=== PATIENT | female | born 1960 | race Caucasian/White ===

== ENCOUNTER 2021-05-19 09:35 | Emergency (ER) | payer OTHER ==
--- NOTE | 2021-05-19 10:20 | EDPHYS ---
Physician Documentation [facility] Name: Chayo Sexton Age: 61 yrs Sex: Female : 1960 Arrival Date: 05/19/2021 Time: 09:40 Bed 11 Private MD: ED Physician Rick Connolly HPI: 05/19 10:13 This 61 yrs old Female presents to ER via Ambulatory with complaints of Rash. nataliia 10:13 The patient's rash thought to be caused by Dermatitis. The rash is located on the face, nataliia scalp, right hand and left hand. The rash can be described as confluent, erythematous, patchy, raised. Onset: The symptoms/episode began/occurred 7 day(s) ago. Associated signs and symptoms: Pertinent positives: burning sensation, itching, Pertinent negatives: None. Severity of symptoms: At their worst the symptoms were mild moderate in the emergency department the symptoms are unchanged. Treatment given at home: Benadryl. The patient has not experienced similar symptoms in the past. Historical: - Allergies: 09:50 No Known Allergies; iw - PMHx: 09:50 "valve spasms"; Myocardial infarction; iw - Immunization history:: Client reports receiving the 2nd dose of the Covid vaccine. - Social history:: Smoking status: Patient reports the use of cigarette tobacco products, smokes one pack cigarettes per day. - Family history:: not pertinent. ROS: 10:13 Constitutional: Negative for fever, chills, and weight loss, Eyes: Negative for injury, nataliia pain, redness, and discharge, ENT: Negative for injury, pain, and discharge, Neck: Negative for injury, pain, and swelling, Cardiovascular: Negative for chest pain, palpitations, and edema, Respiratory: Negative for shortness of breath, cough, wheezing, and pleuritic chest pain, Abdomen/GI: Negative for abdominal pain, nausea, vomiting, diarrhea, and constipation, Back: Negative for injury and pain, : Negative for injury, bleeding, discharge, and swelling, MS/Extremity: Negative for injury and deformity, Neuro: Negative for headache, weakness, numbness, tingling, and seizure, Psych: Negative for depression, anxiety, suicide ideation, homicidal ideation, and hallucinations, Allergy/Immunology: Negative for hives, rash, and allergies, Endocrine: Negative for neck swelling, polydipsia, polyuria, polyphagia, and marked weight changes, Hematologic/Lymphatic: Negative for swollen nodes, abnormal bleeding, and unusual bruising. 10:13 Skin: Positive for erythema, rash, swelling. Exam: 10:13 Constitutional: This is a well developed, well nourished patient who is awake, alert, nataliia and in no acute distress. Head/Face: Normocephalic, atraumatic. Eyes: Pupils equal round and reactive to light, extra-ocular motions intact. Lids and lashes normal. Conjunctiva and sclera are non-icteric and not injected. Cornea within normal limits. Periorbital areas with no swelling, redness, or edema. ENT: Nares patent. No nasal discharge, no septal abnormalities noted. Tympanic membranes are normal and external auditory canals are clear. Oropharynx with no redness, swelling, or masses, exudates, or evidence of obstruction, uvula midline. Mucous membranes moist. Neck: Trachea midline, no thyromegaly or masses palpated, and no cervical lymphadenopathy. Supple, full range of motion without nuchal rigidity, or vertebral point tenderness. No Meningismus. Chest/axilla: Normal chest wall appearance and motion. Nontender with no deformity. No lesions are appreciated. Cardiovascular: Regular rate and rhythm with a normal S1 and S2. No gallops, murmurs, or rubs. Normal PMI, no JVD. No pulse deficits. Respiratory: Lungs have equal breath sounds bilaterally, clear to auscultation and percussion. No rales, rhonchi or wheezes noted. No increased work of breathing, no retractions or nasal flaring. Abdomen/GI: Soft, non-tender, with normal bowel sounds. No distension or tympany. No guarding or rebound. No evidence of tenderness throughout. Back: No spinal tenderness. No costovertebral tenderness. Full range of motion. Female : Normal external genitalia. Neuro: Awake and alert, GCS 15, oriented to person, place, time, and situation. Cranial nerves II-XII grossly intact. Motor strength 5/5 in all extremities. Sensory grossly intact. Cerebellar exam normal. Normal gait. Psych: Awake, alert, with orientation to person, place and time. Behavior, mood, and affect are within normal limits. 10:13 Skin: Appearance: Color: normal in color, Temperature: normal temperature, Moisture: normal moisture, petechiae, not noted, ecchymosis, not noted, abscess, not appreciated, cellulitis, is not appreciated, induration, is not appreciated, rash a mild rash is noted, rash can be described as erythematous, macular, nonspecific, raised, on the face, scalp, right hand and left hand. Vital Signs: 09:48 BP 137 / 97; Pulse 70; Resp 16; Temp 98.3; Pulse Ox 100% on R/A; Weight 59.42 kg; iw Height 5 ft. 0 in. (152.40 cm); 10:13 BP 138 / 81; Pulse 66; Resp 16; Pulse Ox 96% on R/A; vg1 09:48 Body Mass Index 25.58 (59.42 kg, 152.40 cm) iw MDM: 09:57 Patient medically screened. [facility] 10:18 Differential diagnosis: impetigo, allergic reaction. Data reviewed: vital signs, nurses nataliia notes. Data interpreted: vehicle monitor technician: rate is 66 beats/min, rhythm is regular, Pulse oximetry: on room air is 96 %. Counseling: I had a detailed discussion with the patient and/or guardian regarding: the historical points, exam findings, and any diagnostic results supporting the discharge/admit diagnosis, the need for outpatient follow up, for definitive care, a energy operations vice president, a family practitioner. Administered Medications: 10:30 Drug: predniSONE 60 mg Route: PO; vg1 10:30 Follow up: Response: Medication administered at discharge. vg1 10:30 Drug: Benadryl (diphenhydrAMINE) 25 mg Route: PO; vg1 10:30 Follow up: Response: Medication administered at discharge. vg1 10:30 Drug: Pepcid (famotidine) 40 mg Route: PO; vg1 10:30 Follow up: Response: Medication administered at discharge. vg1 10:30 Drug: Bactroban (mupirocin) Ointment 2 % 1 application Route: Topical; Site: affected vg1 area; 10:30 Follow up: Response: Medication administered at discharge. vg1 10:30 Drug: Bactrim (trimethoprim-sulfamethoxazole) (160 mg-800 mg (DS) 1 tablet Route: PO; vg1 10:30 Follow up: Response: Medication administered at discharge. vg1 Disposition Summary: 05/19/21 10:19 Discharge Ordered Location: Home nataliia Problem: new nataliia Symptoms: have improved nataliia Condition: Stable nataliia Diagnosis - Dermatitis, unspecified nataliia - Allergic contact dermatitis due to dyes nataliia - Allergic contact dermatitis due to cosmetics nataliia Followup: nataliia - With: Private Physician - When: 2 - 3 days - Reason: Recheck today's complaints, Continuance of care, Re-evaluation by your physician Followup: nataliia - With: Luther Smith MD - When: 2 - 3 days - Reason: Recheck today's complaints, Re-evaluation by your physician Discharge Instructions: - Discharge Summary Sheet nataliia - Contact Dermatitis nataliia - Rash, Adult nataliia - Rash, Adult, [id number] nataliia - Contact Dermatitis, [id number] [facility] Forms: - Medication Reconciliation Form [facility] - Thank You Letter [facility] - Antibiotic Education [facility] - Prescription Opioid Use [facility] Prescriptions: - Centany 2 % Topical ointment - apply 1 application by TOPICAL route 3 times per day; 22 gram; Refills: 0, [facility] Product Selection Permitted - Benadryl 25 mg Oral Capsule - take 1 capsule by ORAL route every 6 hours As needed; 30 tablet; Refills: 0, [facility] Product Selection Permitted - Pepcid 20 mg Oral Tablet - take 1 tablet by ORAL route every 12 hours for 10 days; 20 tablet; Refills: 0, [facility] Product Selection Permitted - Bactrim DS 800-160 mg Oral Tablet - take 1 tablet by ORAL route every 12 hours for 10 days; 20 tablet; Refills: 0, [facility] Product Selection Permitted - Prednisone 20 mg Oral Tablet - take 2 tablets by ORAL route once daily for 5 days; 10 tablet; Refills: 0, [facility] Product Selection Permitted Signatures: Rick Connolly MD MD cha Williams, Irene, RN Poonam Palencia RN RN vg1
--- NOTE | 2021-05-19 10:20 | ER ---
Nurse's Notes [facility] Name: Chayo Sexton Age: 61 yrs Sex: Female : 1960 Arrival Date: 05/19/2021 Time: 09:40 Bed 11 Private MD: Diagnosis: Dermatitis, unspecified;Allergic contact dermatitis due to dyes;Allergic contact dermatitis due to cosmetics Presentation: 05/19 09:48 Chief complaint: Patient states: rash around neck started 3 weeks ago, started on her iw ears that were oozing , went to PCP, started on steroid cream and given soap to wash with , thinks it was from poison sebastian from her cat , now rash is on her scalp. Coronavirus screen: At this time, the client does not indicate any symptoms associated with coronavirus-19. Ebola Screen: Patient negative for fever greater than or equal to 101.5 degrees Fahrenheit, and additional compatible Ebola Virus Disease symptoms Patient denies exposure to infectious person. Patient denies travel to an Ebola-affected area in the 21 days before illness onset. No symptoms or risks identified at this time. Initial Sepsis Screen: Does the patient meet any 2 criteria? No. Patient's initial sepsis screen is negative. Does the patient have a suspected source of infection? No. Patient's initial sepsis screen is negative. Risk Assessment: Do you want to hurt yourself or someone else? Patient reports no desire to harm self or others. Onset of symptoms was May 05, 2021. 09:48 Method Of Arrival: Ambulatory iw 09:48 Acuity: INDIGO 3 iw Historical: - Allergies: 09:50 No Known Allergies; iw - PMHx: 09:50 "valve spasms"; Myocardial infarction; iw - Immunization history:: Client reports receiving the 2nd dose of the Covid vaccine. - Social history:: Smoking status: Patient reports the use of cigarette tobacco products, smokes one pack cigarettes per day. - Family history:: not pertinent. Screenin:14 Abuse screen: Denies threats or abuse. Nutritional screening: No deficits noted. vg1 Tuberculosis screening: No symptoms or risk factors identified. Fall Risk No fall in past 12 months (0 pts). No secondary diagnosis (0 pts). No IV (0 pts). Ambulatory Aid- None/Bed Rest/Nurse Assist (0 pts). Gait- Normal/Bed Rest/Wheelchair (0 pts) Mental Status- Oriented to own ability (0 pts). Total Merritt Fall Scale indicates No Risk (0-24 pts). Assessment: 10:10 General: Appears in no apparent distress. uncomfortable, Behavior is calm, cooperative. vg1 Pain: Complains of pain in neck, scalp, ears, and JAZIEL hands Pain currently is 8 out of 10 on a pain scale. Pain began about 3 weeks ago. Neuro: Level of Consciousness is awake, alert, obeys commands, Oriented to person, place, time, situation. Cardiovascular: Patient's skin is warm and dry. Respiratory: Airway is patent Respiratory effort is even, unlabored, Breath sounds are clear bilaterally. GI: No signs and/or symptoms were reported involving the gastrointestinal system. : No signs and/or symptoms were reported regarding the genitourinary system. EENT: Throat is clear. Derm: Skin appears to have scabs around neck line, scalp, JAZIEL ears, and JAZIEL hands Skin is red. Musculoskeletal: Circulation, motion, and sensation intact. Vital Signs: 09:48 BP 137 / 97; Pulse 70; Resp 16; Temp 98.3; Pulse Ox 100% on R/A; Weight 59.42 kg; iw Height 5 ft. 0 in. (152.40 cm); 10:13 BP 138 / 81; Pulse 66; Resp 16; Pulse Ox 96% on R/A; vg1 09:48 Body Mass Index 25.58 (59.42 kg, 152.40 cm) iw ED Course: 09:40 Patient arrived in ED. mr 09:50 Triage completed. iw 09:52 Arm band placed on. iw 09:56 Poonam Perez, MARIS is Primary Nurse. vg1 09:57 Rick Connolly MD is Attending Physician. natailia 10:14 Patient has correct armband on for positive identification. Call light in reach. vg1 10:14 No provider procedures requiring assistance completed. Patient did not have IV access vg1 during this emergency room visit. 10:20 Luther Smith MD is Referral Physician. nataliia Administered Medications: 10:30 Drug: predniSONE 60 mg Route: PO; vg1 10:30 Follow up: Response: Medication administered at discharge. vg1 10:30 Drug: Benadryl (diphenhydrAMINE) 25 mg Route: PO; vg1 10:30 Follow up: Response: Medication administered at discharge. vg1 10:30 Drug: Pepcid (famotidine) 40 mg Route: PO; vg1 10:30 Follow up: Response: Medication administered at discharge. vg1 10:30 Drug: Bactroban (mupirocin) Ointment 2 % 1 application Route: Topical; Site: affected vg1 area; 10:30 Follow up: Response: Medication administered at discharge. vg1 10:30 Drug: Bactrim (trimethoprim-sulfamethoxazole) (160 mg-800 mg (DS) 1 tablet Route: PO; vg1 10:30 Follow up: Response: Medication administered at discharge. vg1 Outcome: 10:19 Discharge ordered by . nataliia 10:31 Discharged to home ambulatory. vg1 10:31 Condition: stable 10:31 Discharge instructions given to patient, Instructed on discharge instructions, follow up and referral plans. medication usage, Demonstrated understanding of instructions, follow-up care, medications, Prescriptions given X 5 10:31 Patient left the ED. vg1 Signatures: Rick Connolly MD MD cha Rivera, Mary mr Williams, Irene, Poonam Palencia RN, RN RN vg1
[2021-05-19 10:37] VITALS: TEMP 98.3
[2021-05-19 10:38] VITALS: BP 138/81; O2SAT 96
[2021-05-19] MEDS ORDERED: DIPHENHYDRAMINE 25 MG TAB/CAP ONE (10:41)
[2021-05-19] MEDS ORDERED: SMZ./TMP. 800/160 MG TABLET ONE (10:41)
[2021-05-19] MEDS ORDERED: predniSONE 20 MG TAB ONE (10:42)
[2021-05-19] MEDS ORDERED: MUPIROCIN 2% OINT 22GM TUBE TOP ONE (10:42)
[2021-05-19] MEDS ORDERED: FAMOTIDINE 20 MG TAB ONE (10:42)
== END 2021-05-19 10:31 | disposition home or self-care (01) ==
LOC: ER 09:35
DX: L23.4 Allergic contact dermatitis due to dyes (principal); L23.2 Allergic contact dermatitis due to cosmetics; F17.210 Nicotine dependence, cigarettes, uncomplicated
CPT/HCPCS: 99283; J7512

== ENCOUNTER 2022-01-12 10:32 | Emergency (ER) | payer OTHER ==
--- OUTSIDE RECORDS SUMMARY | 2022-01-12 10:35 | XMS REPORT | Continuity of Care Document ---
:1960 Author Organization [facility] t Address [address] [place] [address] Dr. Carrasco [address] [place] [id number] Care Team Providers Name Role Phone Raju_P Attending Clinician Unavailable Raju_P Admitting Clinician Unavailable Problems This patient has no known problems. Allergies, Adverse Reactions, Alerts This patient has no known allergies or adverse reactions. Medications This patient has no known medications. Procedures This patient has no known procedures. Encounters Start End Encounter Admission Attending Care Care Encounter Source Date/Time Date/Time Type Type Clinicians Facility Department ID 2019-12-13 2019-12-13 Outpatient Leon[facility]P [facility] [id number] [place] 11:32:00 11:32:00 [id number] Results This patient has no known results.
[2022-01-12] MEDS ORDERED: ALBUTEROL 2.5 MG/3 ML NEB SOL ONE (11:08)
[2022-01-12] MEDS ORDERED: HYDROCODONE/CHLORPHEN 5 ML/OSYR ONE (11:08)
[2022-01-12] MEDS ORDERED: METHYLPREDNISOLONE 125 MG INJ ONE (11:08)
--- NOTE | 2022-01-12 11:39 | RAD REPORT ---
EXAM DESCRIPTION: RAD - Chest Pa And Lat (2 Views) - 01/12/2022 11:32 am CLINICAL HISTORY: Cough Chest pain. COMPARISON: <Comparisons> FINDINGS: There is a moderate-sized opacity in the right middle lobe most likely representing bronch opneumonia. Underlying lung soto appear mildly emphysematous. The heart is upper limit normal in si ze. No displaced fractures. IMPRESSION: Moderate right middle lobe pneumonia suspected. Recommend followup films after appropriate therapy to ensure clearance.
[2022-01-12 11:52] LABS: SARS-COV-2 RT PCR NEGATIVE (NEGATIVE)
[2022-01-12] MEDS ORDERED: CEFTRIAXONE 1000 MG/VIAL ONE (12:08)
--- NOTE | 2022-01-12 12:14 | EDPHYS ---
Physician Documentation [facility] Name: Chayo Sexton Age: 61 yrs Sex: Female : 1960 Arrival Date: 01/12/2022 Time: 10:36 Bed 7 Private MD: ED Physician Sivakumar Mercer HPI: 01/12 11:13 This 61 yrs old Female presents to ER via Ambulatory with complaints of Headache, pm1 Fever, Congestion. 11:13 The patient or guardian reports cough, loss of taste and smell - just like her prior pm1 covid infection 3 months ago. Onset: The symptoms/episode began/occurred 3 day(s) ago. Severity of symptoms: in the emergency department the symptoms are unchanged. Modifying factors: The symptoms are alleviated by Tylenol, ibuprofen. Associated signs and symptoms: Pertinent positives: fever, sore throat, productive cough, yellow sputum, Pertinent negatives: chest pain, diarrhea, ear ache, vomiting, SOB. The patient has experienced a previous episode, approximately 3 months ago, to covid infection 3 months ago. The patient has not recently seen a physician. Historical: - Allergies: 10:48 No Known Allergies; vg1 - Home Meds: 10:48 Neurontin Oral [Active]; Celexa Oral [Active]; aspirin 500 mg Oral TbEC [Active]; vg1 11:12 another unk med [Active]; jg9 - PMHx: 10:48 "valve spasms"; Myocardial infarction; vg1 - Immunization history:: Client reports receiving the 2nd dose of the Covid vaccine. - Social history:: Smoking status: Patient reports the use of cigarette tobacco products, smokes one-half pack cigarettes per day. ROS: 11:13 Eyes: Negative for injury, pain, redness, and discharge, Cardiovascular: Negative for pm1 chest pain, palpitations, and edema. 11:13 Abdomen/GI: Negative for abdominal pain, nausea, vomiting, diarrhea, and constipation, Back: Negative for injury and pain, MS/Extremity: Negative for injury and deformity, Skin: Negative for injury, rash, and discoloration. 11:13 Constitutional: Positive for fever, Negative for poor PO intake. 11:13 ENT: Positive for rhinorrhea, sore throat, Negative for ear pain. 11:13 Respiratory: Positive for cough, Negative for shortness of breath. 11:13 Neuro: Positive for headache. 11:13 All other systems are negative. Exam: 11:13 Constitutional: This is a well developed, well nourished patient who is awake, alert, pm1 and in no acute distress. Head/Face: Normocephalic, atraumatic. 11:13 Back: No spinal tenderness. No costovertebral tenderness. Full range of motion. Skin: Warm, dry with normal turgor. Normal color with no rashes, no lesions, and no evidence of cellulitis. MS/ Extremity: Pulses equal, no cyanosis. Neurovascular intact. Full, normal range of motion. 11:13 Eyes: Exam is negative for acute changes, Periorbital structures: appear normal, Pupils: no acute changes, Extraocular movements: no acute changes, Conjunctiva: no acute changes, no injection. 11:13 ENT: Nose: no acute changes, Mouth: Lips: normal, moist, Posterior pharynx: no acute changes, Airway: no evidence of obstruction, Tonsils: are normal in appearance, erythema, that is mild, peritonsillar mass, is not appreciated. 11:13 Cardiovascular: Exam negative for acute changes, Rate: normal, Rhythm: regular, Pulses: no pulse deficits are appreciated, Heart sounds: normal, Edema: is not appreciated. 11:13 Respiratory: Exam negative for acute changes, respiratory distress, shortness of breath, Breath sounds: are clear throughout. 11:13 Neuro: Exam negative for acute changes, Orientation: is normal, Mentation: is normal, Motor: moves all fours. Vital Signs: 10:46 BP 143 / 80; Pulse 68; Resp 18; Temp 99.1(TE); Pulse Ox 97% on R/A; Weight 54.43 kg; vg1 Height 5 ft. 0 in. (152.40 cm); Pain 0/10; 11:14 BP 109 / 77; Pulse 57; Resp 20 S; Pulse Ox 98% on Nebulizer Mask; Pain 8/10; jg9 12:15 BP 126 / 82; Pulse 69; Resp 17 S; Pulse Ox 97% on R/A; jg9 10:46 Body Mass Index 23.44 (54.43 kg, 152.40 cm) vg1 MDM: 10:54 Patient medically screened. pm1 11:20 Data reviewed: vital signs. Data interpreted: Pulse oximetry: on room air is 98 %. pm1 Interpretation: normal. 11:56 Counseling: I had a detailed discussion with the patient and/or guardian regarding: lab pm1 results, radiology results. 12:08 Counseling: I had a detailed discussion with the patient and/or guardian regarding: the pm1 historical points, exam findings, and any diagnostic results supporting the discharge/admit diagnosis, the need for outpatient follow up, to return to the emergency department if symptoms worsen or persist or if there are any questions or concerns that arise at home. 12:11 Special discussion: I discussed with the patient/guardian in detail that at this point pm1 there is no indication for admission to the hospital. It is understood, however, that if the symptoms persist or worsen the patient needs to return immediately for re-evaluation. Patient's VSS and no oxygen requirement. Will trial the patient at home with antibiotics and return to the ER for reevaluation if she worsens. 01/12 10:52 Order name: COVID-19/FLU A+B (Document "Date of Onset" if Symptomatic); Complete Time: ww 11:52 01/12 10:55 Order name: Strep; Complete Time: 11:30 pm1 01/12 11:01 Order name: Chest Pa And Lat (2 Views) XRAY; Complete Time: 11:43 pm1 01/12 11:30 Order name: Throat Culture EDMS Administered Medications: 11:06 Drug: Tussionex Pennkinetic ER (chlorpheniramine-hydrocodone) Suspension 5 ml Route: PO;jg9 12:14 Follow up: Response: No adverse reaction; Marked relief of symptoms jg9 11:09 Drug: Albuterol 2.5 mg Route: Inhalation; jg9 12:14 Follow up: Response: No adverse reaction; Marked relief of symptoms jg9 11:10 Drug: SOLU-Medrol (methylPREDNISolone sodium succinate) 125 mg Route: IM; Site: left jg9 deltoid; 12:14 Follow up: Response: No adverse reaction; Marked relief of symptoms jg9 12:14 Drug: Rocephin (cefTRIAXone) 1 grams Route: IM; Site: right gluteus; jg9 12:14 Follow up: Response: No adverse reaction; Medication administered at discharge. jg9 Disposition Summary: 01/12/22 12:13 Discharge Ordered Location: Home pm1 Problem: new pm1 Symptoms: have improved pm1 Condition: Stable pm1 Diagnosis - Pneumonia, unspecified organism pm1 Followup: pm1 - With: Emergency Department - When: As needed - Reason: Worsening of condition Followup: pm1 - With: Private Physician - When: 2 - 3 days - Reason: Recheck today's complaints, Continuance of care, Re-evaluation by your physician Discharge Instructions: - Discharge Summary Sheet pm1 - Community-Acquired Pneumonia, Adult pm1 - Steps to Quit Smoking pm1 Forms: - Medication Reconciliation Form pm1 - Thank You Letter pm1 - Antibiotic Education pm1 - Prescription Opioid Use pm1 Prescriptions: - Zithromax Z-Venkat 250 mg Oral Tablet - take 1 tablet by ORAL route as directed for 5 days Day 1 - take two (2) tablets pm1 one time. Day 2, 3, 4 , 5 take one (1) tablet once daily.; 6 tablet; Refills: 0, Product Selection Permitted - Augmentin 875-125 mg Oral Tablet - take 1 tablet by ORAL route every 12 hours for 10 days; 20 tablet; Refills: 0, pm1 Product Selection Permitted - Ventolin HFA 90 mcg/actuation Inhalation HFA aerosol inhaler - inhale 2 puff by INHALATION route every 4-6 hours As needed; 1 Inhaler; pm1 Refills: 0, Product Selection Permitted - Medrol (Venkat) 4 mg Oral Tablets, Dose Pack - take 1 tablet by ORAL route as directed - follow package instructions; 1 pm1 packet; Refills: 0, Product Selection Permitted - Guaifenesin AC 10-100 mg/5 mL Oral Liquid - take 10 milliliters by ORAL route every 4 hours As needed; 240 milliliter; pm1 Refills: 0, Product Selection Permitted Signatures: Dispatcher [employer] Ryland Lee NP BUILDINGS AND GR[employer]DS SUPERINTENDENT pm1 Poonam Perez, RN RN vg1 Silvina Lee RN RN jg9
--- NOTE | 2022-01-12 12:14 | ER ---
Nurse's Notes [facility] Name: Chayo Sexton Age: 61 yrs Sex: Female : 1960 Arrival Date: 01/12/2022 Time: 10:36 Bed 7 Private MD: Diagnosis: Pneumonia, unspecified organism Presentation: 01/12 10:46 Chief complaint: Patient states: Fever and cough x 3 days; states does not have taste vg1 and smell. Denies NVD and took Tylenol at 0900. Coronavirus screen: Vaccine status: Patient reports receiving the 2nd dose of the covid vaccine. Client denies travel out of the [place] in the last 14 days. Coronavirus screen: Client presents with at least one sign or symptom that may indicate coronavirus-19. Standard/surgical mask placed on the client. Ebola Screen: Patient negative for fever greater than or equal to 101.5 degrees Fahrenheit, and additional compatible Ebola Virus Disease symptoms. Initial Sepsis Screen: Does the patient meet any 2 criteria? No. Patient's initial sepsis screen is negative. Does the patient have a suspected source of infection? No. Patient's initial sepsis screen is negative. Risk Assessment: Do you want to hurt yourself or someone else? Patient reports no desire to harm self or others. Onset of symptoms was January 09, 2022. 10:46 Method Of Arrival: Ambulatory vg1 10:46 Acuity: INDIGO 3 vg1 Triage Assessment: 10:48 Headache History: The patient has had previous headaches and this one is similar to vg1 previous episodes. General: Appears in no apparent distress. uncomfortable, Behavior is calm, cooperative. Pain: Denies pain. Neuro: Level of Consciousness is awake, alert, obeys commands, Oriented to person, place, time, situation. 11:12 Pain: Pain currently is 8 out of 10 on a pain scale. Pain began gradually, Also jg9 complains of shortness of breath. Historical: - Allergies: 10:48 No Known Allergies; vg1 - Home Meds: 10:48 Neurontin Oral [Active]; Celexa Oral [Active]; aspirin 500 mg Oral TbEC [Active]; vg1 11:12 another unk med [Active]; jg9 - PMHx: 10:48 "valve spasms"; Myocardial infarction; vg1 - Immunization history:: Client reports receiving the 2nd dose of the Covid vaccine. - Social history:: Smoking status: Patient reports the use of cigarette tobacco products, smokes one-half pack cigarettes per day. Screenin:11 Abuse screen: Denies threats or abuse. Denies injuries from another. Nutritional jg9 screening: No deficits noted. Tuberculosis screening: No symptoms or risk factors identified. Fall Risk None identified. Assessment: 11:11 Reassessment: No changes from previously documented assessment. Patient and/or family jg9 updated on plan of care and expected duration. Pain level reassessed. Pain: Complains of pain in body aches. 12:00 Reassessment: Patient and/or family updated on plan of care and expected duration. Pain jg9 level reassessed. Patient states feeling better. Patient states symptoms have improved. Vital Signs: 10:46 BP 143 / 80; Pulse 68; Resp 18; Temp 99.1(TE); Pulse Ox 97% on R/A; Weight 54.43 kg; vg1 Height 5 ft. 0 in. (152.40 cm); Pain 0/10; 11:14 BP 109 / 77; Pulse 57; Resp 20 S; Pulse Ox 98% on Nebulizer Mask; Pain 8/10; jg9 12:15 BP 126 / 82; Pulse 69; Resp 17 S; Pulse Ox 97% on R/A; jg9 10:46 Body Mass Index 23.44 (54.43 kg, 152.40 cm) vg1 ED Course: 10:36 Patient arrived in ED. rg4 10:48 Triage completed. vg1 10:48 Arm band placed on. vg1 10:54 Ryland Branch NP is PHCP. pm1 10:54 Sivakumar Mercer MD is Attending Physician. pm1 11:02 Silvina Lee, MARIS is Primary Nurse. jg9 11:11 No apparent distress. Resting quietly. jg9 11:12 Patient has correct armband on for positive identification. Bed in low position. Call jg9 light in reach. 11:34 Chest Pa And Lat (2 Views) XRAY In Process Unspecified. EDMS 12:24 No provider procedures requiring assistance completed. jg9 12:24 Patient did not have IV access during this emergency room visit. jg9 Administered Medications: 11:06 Drug: Tussionex Pennkinetic ER (chlorpheniramine-hydrocodone) Suspension 5 ml Route: PO;jg9 12:14 Follow up: Response: No adverse reaction; Marked relief of symptoms jg9 11:09 Drug: Albuterol 2.5 mg Route: Inhalation; jg9 12:14 Follow up: Response: No adverse reaction; Marked relief of symptoms jg9 11:10 Drug: SOLU-Medrol (methylPREDNISolone sodium succinate) 125 mg Route: IM; Site: left jg9 deltoid; 12:14 Follow up: Response: No adverse reaction; Marked relief of symptoms jg9 12:14 Drug: Rocephin (cefTRIAXone) 1 grams Route: IM; Site: right gluteus; jg9 12:14 Follow up: Response: No adverse reaction; Medication administered at discharge. jg9 Outcome: 12:13 Discharge ordered by . pm1 12:24 Discharged to home ambulatory. jg9 12:24 Condition: improved 12:24 Discharge instructions given to patient, Instructed on discharge instructions, follow up and referral plans. Demonstrated understanding of instructions, follow-up care, medications, Prescriptions given X 4. 12:24 Patient left the ED. jg9 Signatures: Dispatcher [employer] EDMS Ryland Branch NP [employer] WORKER pm1 Krysta Perez rg4 Poonam Perez RN RN vg1 Silvina Lee RN RN jg9
[2022-01-12 12:39] VITALS: TEMP 99.1
[2022-01-12 12:42] VITALS: BP 126/82; O2SAT 97
== END 2022-01-12 12:24 | disposition home or self-care (01) ==
LOC: ER 10:32
DX: J18.9 Pneumonia, unspecified organism (principal); I25.2 Old myocardial infarction; F17.210 Nicotine dependence, cigarettes, uncomplicated; Z79.82 Long term (current) use of aspirin; Z86.16 Personal history of COVID-19; Z20.822 Contact with and (suspected) exposure to COVID-19
CPT/HCPCS: 87070; 87081; 0240U; 71046; 96372; 99284; J2930

== ENCOUNTER 2022-02-17 06:24 | Emergency (ER) | payer OTHER ==
--- OUTSIDE RECORDS SUMMARY | 2022-02-17 06:26 | XMS REPORT | Continuity of Care Document ---
:1960 Author Organization [facility] t Address [address] [place] [address] Dr. Carrasco [address] [place] [id number] Care Team Providers Name Role Phone Raju_P Attending Clinician Unavailable Prashanthu_P Admitting Clinician Unavailable Problems This patient has no known problems. Allergies, Adverse Reactions, Alerts This patient has no known allergies or adverse reactions. Medications This patient has no known medications. Procedures This patient has no known procedures. Encounters Start End Encounter Admission Attending Care Care Encounter Source Date/Time Date/Time Type Type Clinicians Facility Department ID 2019-12-13 2019-12-13 Outpatient Leon_P [id number] [place] 11:32:00 11:32:00 [facility] Results This patient has no known results.
[2022-02-17] MEDS ORDERED: METHYLPREDNISOLONE 125 MG INJ ONE (06:50)
[2022-02-17] MEDS ORDERED: FLUCONAZOLE 100 MG TAB ONE (06:50)
--- NOTE | 2022-02-17 07:09 | ER ---
Nurse's Notes [facility] Name: Chayo Sexton Age: 61 yrs Sex: Female : 1960 Arrival Date: 02/17/2022 Time: 06:26 Bed 6 Private MD: Diagnosis: Allergic contact dermatitis due to dyes-Hair dye Presentation: 02/17 06:35 Chief complaint: Patient states: she is having an allergic reaction to hair dye she had bb this same reaction last year her scalp is burning and itching. Coronavirus screen: At this time, the client does not indicate any symptoms associated with coronavirus-19. Ebola Screen: No symptoms or risks identified at this time. Onset: The symptoms/episode began/occurred acutely. Anaphylaxis evaluation, no signs or symptoms of anaphylaxis were noted. Initial Sepsis Screen: Does the patient meet any 2 criteria? No. Patient's initial sepsis screen is negative. Does the patient have a suspected source of infection? No. Patient's initial sepsis screen is negative. Risk Assessment: Do you want to hurt yourself or someone else? Patient reports no desire to harm self or others. Onset of symptoms was February 17, 2022. 06:35 Method Of Arrival: Ambulatory bb 06:35 Acuity: INDIGO 4 bb Historical: - Allergies: 06:37 No Known Allergies; bb - Home Meds: 06:37 Aspirin Oral [Active]; gabapentin oral [Active]; citalopram oral [Active]; Alprazolam bb Oral [Active]; Diltiazem Oral [Active]; - PMHx: 06:37 "valve spasms"; Myocardial infarction; Arthritis; Anxiety; Chronic obstructive lung bb disease; - Immunization history:: Client reports receiving the 2nd dose of the Covid vaccine, Pfizer. - Social history:: Smoking status: Patient reports the use of cigarette tobacco products, smokes one-half pack cigarettes per day. - Family history:: not pertinent. - Hospitalizations: : No recent hospitalization is reported. Screenin:36 Abuse screen: Denies threats or abuse. Denies injuries from another. Nutritional lg3 screening: No deficits noted. Tuberculosis screening: No symptoms or risk factors identified. Fall Risk None identified. Assessment: 06:36 General: Appears in no apparent distress. comfortable, Behavior is calm, cooperative, lg3 anxious. Pain: Complains of pain in scalp. Neuro: No deficits noted. Giles Agitation-Sedation Scale (RASS): 0 - Alert and Calm Level of Consciousness is awake, alert, obeys commands, Oriented to person, place, time, situation. Cardiovascular: No deficits noted. Denies chest pain, shortness of breath, Capillary refill < 3 seconds Clubbing of nail beds is absent JVD is absent Patient's skin is warm and dry. Respiratory: No deficits noted. Airway is patent Trachea midline Respiratory effort is even, unlabored, Respiratory pattern is regular, symmetrical, Breath sounds are clear bilaterally. GI: No deficits noted. No signs and/or symptoms were reported involving the gastrointestinal system. Abdomen is flat, non-distended. : No deficits noted. No signs and/or symptoms were reported regarding the genitourinary system. EENT: No deficits noted. No signs and/or symptoms were reported regarding the EENT system. Derm: Reports itching. Musculoskeletal: No deficits noted. No signs and/or symptoms reported regarding the musculoskeletal system. Circulation, motion, and sensation intact. Capillary refill < 3 seconds, Range of motion: intact in all extremities. Vital Signs: 06:35 BP 147 / 86; Pulse 78; Resp 18 S; Temp 99.2(O); Pulse Ox 99% on R/A; Weight 52.16 kg bb (R); Height 5 ft. 0 in. (152.40 cm) (R); Pain 0/10; 06:35 Body Mass Index 22.46 (52.16 kg, 152.40 cm) bb ED Course: 06:26 Patient arrived in ED. bp1 06:27 Robret Red MD is Attending Physician. rn 06:27 Cristina Zamora RN is Primary Nurse. lg3 06:36 Patient has correct armband on for positive identification. Bed in low position. Call lg3 light in reach. Side rails up X 1. Client placed on continuous cardiac and pulse oximetry monitoring. NIBP monitoring applied. Door closed. Noise minimized. Warm blanket given. 06:37 Triage completed. bb 06:37 Arm band placed on Patient placed in an exam room, on a stretcher, on pulse oximetry. bb 07:28 No provider procedures requiring assistance completed. Patient did not have IV access jl7 during this emergency room visit. Administered Medications: 06:50 Drug: DiFLUcan (fluconazole) 200 mg Route: PO; lg3 06:50 Follow up: Response: No adverse reaction lg3 06:50 Drug: Clindamycin 300 mg Route: PO; lg3 06:50 Follow up: Response: No adverse reaction lg3 06:51 Drug: SOLU-Medrol (methylPREDNISolone sodium succinate) 125 mg Route: IM; Site: right lg3 gluteus; 06:51 Follow up: Response: No adverse reaction lg3 Medication: 06:36 VIS not applicable for this client. lg3 Outcome: 07:08 Discharge ordered by . rn 07:28 Discharged to home ambulatory. jl7 07:28 Condition: stable 07:28 Discharge instructions given to patient, Instructed on discharge instructions, follow up and referral plans. medication usage, Demonstrated understanding of instructions, follow-up care, medications, Prescriptions given X 2. 07:28 Patient left the ED. jl7 Signatures: Dinah Vega RN RN Robert Cueto MD MD rn Leal, Jahala, RN RN jl7 Cristina Zamora RN RN lg3 Anali Moise [facility]
--- NOTE | 2022-02-17 07:09 | EDPHYS ---
Physician Documentation [facility] Name: Chayo Sexton Age: 61 yrs Sex: Female : 1960 Arrival Date: 02/17/2022 Time: 06:26 Bed 6 Private MD: ED Physician Robert Red HPI: 02/17 06:41 This 61 yrs old Female presents to ER via Ambulatory with complaints of Allergic rn Reaction. 06:41 The patient presents with itching, rash. Onset: The symptoms/episode began/occurred 2 rn day(s) ago. Associated signs and symptoms: Pertinent positives: hives, rash, Pertinent negatives: abdominal pain, chest pain, fever, headache, shortness of breath, Syncope. Possible causes: hair dye. At home the patient or guardian has treated the symptoms with Benadryl. Severity of symptoms: At their worst the symptoms were mild in the emergency department the symptoms are unchanged. The patient has experienced a previous episode. The patient has not recently seen a physician. Pt reports allergic reaction to hair dye. Has happened like this once before. Had hair dye 2 nights ago and then began shortly after. No sob/chest pain/abd pain/wheezing. Reports rash to scalp and itching behind ears. No fever. . Historical: - Allergies: 06:37 No Known Allergies; bb - Home Meds: 06:37 Aspirin Oral [Active]; gabapentin oral [Active]; citalopram oral [Active]; Alprazolam bb Oral [Active]; Diltiazem Oral [Active]; - PMHx: 06:37 "valve spasms"; Myocardial infarction; Arthritis; Anxiety; Chronic obstructive lung bb disease; - Immunization history:: Client reports receiving the 2nd dose of the Covid vaccine, Pfizer. - Social history:: Smoking status: Patient reports the use of cigarette tobacco products, smokes one-half pack cigarettes per day. - Family history:: not pertinent. - Hospitalizations: : No recent hospitalization is reported. ROS: 06:41 Constitutional: Negative for fever, chills, and weight loss, Eyes: Negative for injury, rn pain, redness, and discharge, Neck: Negative for injury, pain, and swelling, Cardiovascular: Negative for chest pain, palpitations, and edema, Respiratory: Negative for shortness of breath, cough, wheezing, and pleuritic chest pain, Abdomen/GI: Negative for abdominal pain, nausea, vomiting, diarrhea, and constipation, Back: Negative for injury and pain, MS/Extremity: Negative for injury and deformity, Skin: + itching and rash to scalp and behind ears Neuro: Negative for headache, weakness, numbness, tingling, and seizure. Exam: 06:41 Constitutional: This is a well developed, well nourished patient who is awake, alert, rn and in no acute distress. Head/Face: Normocephalic, atraumatic. Eyes: Pupils equal round and reactive to light, extra-ocular motions intact. Lids and lashes normal. Conjunctiva and sclera are non-icteric and not injected. Cornea within normal limits. Periorbital areas with no swelling, redness, or edema. ENT: No intraoral lesions. No stridor. Cardiovascular: Regular rate and rhythm. No pulse deficits. Respiratory: Speaking full sentences. No increased work of breathing, no retractions or nasal flaring. Skin: Warm, + urticarial rash to scalp and behind ears, no skin sloughing, no intraoral lesions, no bullae. Scalp wet but no purulence. Vital Signs: 06:35 BP 147 / 86; Pulse 78; Resp 18 S; Temp 99.2(O); Pulse Ox 99% on R/A; Weight 52.16 kg bb (R); Height 5 ft. 0 in. (152.40 cm) (R); Pain 0/10; 06:35 Body Mass Index 22.46 (52.16 kg, 152.40 cm) bb MDM: 06:27 Patient medically screened. rn 06:50 Differential diagnosis: urticaria. Data reviewed: vital signs, nurses notes, and as a rn result, I will discharge patient. Counseling: I had a detailed discussion with the patient and/or guardian regarding: the historical points, exam findings, and any diagnostic results supporting the discharge/admit diagnosis, the need for outpatient follow up, to return to the emergency department if symptoms worsen or persist or if there are any questions or concerns that arise at home. Special discussion: I discussed with the patient/guardian in detail that at this point there is no indication for admission to the hospital. It is understood, however, that if the symptoms persist or worsen the patient needs to return immediately for re-evaluation. 07:07 Response to treatment: the patient's symptoms have mildly improved after treatment, and rn as a result, I will discharge patient. Administered Medications: 06:50 Drug: DiFLUcan (fluconazole) 200 mg Route: PO; lg3 06:50 Follow up: Response: No adverse reaction lg3 06:50 Drug: Clindamycin 300 mg Route: PO; lg3 06:50 Follow up: Response: No adverse reaction lg3 06:51 Drug: SOLU-Medrol (methylPREDNISolone sodium succinate) 125 mg Route: IM; Site: right lg3 gluteus; 06:51 Follow up: Response: No adverse reaction lg3 Disposition Summary: 02/17/22 07:08 Discharge Ordered Location: Home rn Problem: new rn Symptoms: have improved rn Condition: Stable rn Diagnosis - Allergic contact dermatitis due to dyes - Hair dye rn Followup: rn - With: Private Physician - When: As needed - Reason: Recheck today's complaints, Re-evaluation by your physician Discharge Instructions: - Discharge Summary Sheet rn - Contact Dermatitis rn - Rash, Adult rn Forms: - Medication Reconciliation Form rn - Thank You Letter rn - Antibiotic double corner cutter - Prescription Opioid Use rn Prescriptions: - Clindamycin HCl 300 mg Oral Capsule - take 1 capsule by ORAL route every 6 hours for 10 days; 40 capsule; Refills: 0, rn Product Selection Permitted - Prednisone 20 mg Oral Tablet - take 1 tablet by ORAL route as directed for 10 days Take 3 tablets by mouth rn once daily for 5 days, followed by 2 tablets by mouth daily for 3 days, followed by 1 tablet by mouth daily for 2 days.; 23 tablet; Refills: 0, Product Selection Permitted Signatures: Dinah Vega RN RN Robert Cueto MD MD rn Gibson, Lacie, RN RN lg3
[2022-02-17 07:34] VITALS: BP 147/86; TEMP 99.2; O2SAT 99
== END 2022-02-17 07:28 | disposition home or self-care (01) ==
LOC: ER 06:24
DX: L23.4 Allergic contact dermatitis due to dyes (principal); T65.6X1A Toxic effect of paints and dyes, not elsewhere classified, accidental (unintentional), initial encounter; Y92.9 Unspecified place or not applicable; F41.9 Anxiety disorder, unspecified; J44.9 Chronic obstructive pulmonary disease, unspecified; I25.2 Old myocardial infarction; F17.210 Nicotine dependence, cigarettes, uncomplicated
CPT/HCPCS: 96372; 99283; J2930

== ENCOUNTER 2022-03-26 21:15 | Emergency (ER) | payer OTHER ==
[2022-03-26] MEDS ORDERED: IPRATROPIUM BROM 0.5MG/2.5ML ONE (22:52)
[2022-03-26] MEDS ORDERED: ALBUTEROL 2.5 MG/3 ML NEB SOL ONE (22:52)
[2022-03-27] MEDS ORDERED: BEBTELOVIMAB 175 MG/2 ML VIAL IV ONE (00:56)
[2022-03-27] MEDS ORDERED: dexAMETHasone 10 MG/ML VIAL ONE (00:56)
--- NOTE | 2022-03-27 01:30 | ER ---
Nurse's Notes [facility] Name: Chayo Sexton Age: 61 yrs Sex: Female : 1960 Arrival Date: 03/26/2022 Time: 21:17 Bed 17 Private MD: Diagnosis: Influenza due to other identified influenza virus with other respiratory manifestations;SARS-associated coronavirus as the cause of diseases classified elsewhere Presentation: 03/26 22:36 Chief complaint: Patient states: C/o fevers and cough for the past 6 days, denies pain ll3 at this time. Coronavirus screen: Vaccine status: Patient reports receiving the 2nd dose of the covid vaccine. cough unrelated to allergies, fever. Ebola Screen: No symptoms or risks identified at this time. Initial Sepsis Screen: Does the patient meet any 2 criteria? No. Patient's initial sepsis screen is negative. Does the patient have a suspected source of infection? No. Patient's initial sepsis screen is negative. Risk Assessment: Do you want to hurt yourself or someone else? Patient reports no desire to harm self or others. Onset of symptoms was March 20, 2022. 22:36 Method Of Arrival: Ambulatory ll3 22:36 Acuity: INDIGO 3 ll3 Triage Assessment: 22:38 General: Appears uncomfortable, Behavior is calm, cooperative. General: Reports fever ll3 for. Pain: Denies pain. Neuro: Level of Consciousness is awake, alert, obeys commands, Oriented to person, place, time, situation. Respiratory: Reports cough that is Respiratory effort is even, unlabored, Respiratory pattern is regular, symmetrical. Derm: Skin is pink, warm \\T\\ dry. Historical: - Allergies: 22:38 No Known Allergies; ll3 - PMHx: 22:38 Myocardial infarction; "valve spasms"; Arthritis; Chronic obstructive lung disease; ll3 Anxiety; - Immunization history:: Client reports receiving the 2nd dose of the Covid vaccine. - Social history:: Smoking status: Patient reports the use of cigarette tobacco products, smokes one-half pack cigarettes per day. Screenin/06 02:46 Abuse screen: Denies threats or abuse. Nutritional screening: No deficits noted. ll3 Tuberculosis screening: No symptoms or risk factors identified. Fall Risk No fall in past 12 months (0 pts). No secondary diagnosis (0 pts). IV access (20 points). Ambulatory Aid- None/Bed Rest/Nurse Assist (0 pts). Gait- Normal/Bed Rest/Wheelchair (0 pts) Mental Status- Oriented to own ability (0 pts). Total Merritt Fall Scale indicates No Risk (0-24 pts). Assessment: 03/26 22:39 General: See triage assessment. ll3 03/27 00:10 Reassessment: No changes from previously documented assessment. Patient and/or family ll3 updated on plan of care and expected duration. Pain level reassessed. Patient is alert, oriented x 3, equal unlabored respirations, skin warm/dry/pink. 01:10 Reassessment: No changes from previously documented assessment. Patient and/or family ll3 updated on plan of care and expected duration. Pain level reassessed. Patient is alert, oriented x 3, equal unlabored respirations, skin warm/dry/pink. 02:48 Reassessment: No changes from previously documented assessment. Patient and/or family ll3 updated on plan of care and expected duration. Pain level reassessed. Patient is alert, oriented x 3, equal unlabored respirations, skin warm/dry/pink. Vital Signs: 03/26 22:36 BP 121 / 62; Pulse 52; Resp 16; Temp 98.0(O); Pulse Ox 98% on R/A; Weight 54.43 kg (R); ll3 Height 5 ft. 0 in. (152.40 cm) (R); 03/27 00:10 BP 121 / 51; Pulse 59; Resp 17; Pulse Ox 94% on R/A; ll3 01:10 BP 138 / 65; Pulse 71; Resp 16; Pulse Ox 95% on R/A; ll3 02:48 BP 137 / 65; Pulse 60; Resp 16; Pulse Ox 96% on R/A; ll3 03/26 22:36 Body Mass Index 23.44 (54.43 kg, 152.40 cm) ll3 ED Course: 03/26 21:17 Patient arrived in ED. bp1 21:45 Rick Li PA is PHCP. cp 21:45 Robert Red MD is Attending Physician. cp 22:22 XRAY Chest Pa And Lat (2 Views) In Process Unspecified. EDMS 22:36 Navin Farrell, MARIS is Primary Nurse. ll3 22:38 Triage completed. ll3 22:38 Arm band placed on Patient placed in an exam room. ll3 03/27 02:47 Patient has correct armband on for positive identification. Bed in low position. Call ll3 light in reach. Side rails up X 1. 02:47 No provider procedures requiring assistance completed. IV discontinued, intact, ll3 bleeding controlled, No redness/swelling at site. Pressure dressing applied. Administered Medications: 03/26 22:49 Drug: Albuterol 2.5 mg Route: Inhalation; ll3 03/27 00:11 Follow up: Response: No adverse reaction ll3 03/26 22:49 Drug: AtroVENT (ipratropium) Aerosol 0.5 mg Route: Inhalation; ll3 03/27 00:11 Follow up: Response: No adverse reaction ll3 01:18 Drug: Dexamethasone 10 mg Route: IVP; Site: right antecubital; ll3 02:48 Follow up: Response: No adverse reaction ll3 01:20 Drug: bebtelovimab 175 mg Route: IV; Rate: calculated rate; Site: right antecubital; ll3 02:48 Follow up: Response: No adverse reaction; IV Status: Completed infusion; IV Intake: 2ml ll3 Medication: 02:47 Vaccine Information Statement (VIS) provided today. Questions and/or concerns ll3 addressed. VIS edition date: March 27, 2022. Intake: 02:48 IV: 2ml; Total: 2ml. ll3 Outcome: 01:29 Discharge ordered by . cp 02:47 Discharged to home ambulatory, with family. ll3 02:47 Condition: stable 02:47 Discharge instructions given to patient, family, Instructed on discharge instructions, follow up and referral plans. medication usage, Demonstrated understanding of instructions, follow-up care, medications, Prescriptions given X 2. 02:49 Patient left the ED. ll3 Signatures: Dispatcher [employer] EDMS Rick Li PA PA cp Paniauga, Brittany bp1 Loubet, Lynsea, RN RN ll3
--- NOTE | 2022-03-27 01:30 | EDPHYS ---
Physician Documentation [facility] Name: Chayo Sexton Age: 61 yrs Sex: Female : 1960 Arrival Date: 03/26/2022 Time: 21:17 Bed 17 Private MD: ED Physician Robert Red HPI: 03/26 22:10 This 61 yrs old Female presents to ER via Ambulatory with complaints of Cough, Fever. cp 22:10 The patient or guardian reports cough, that is intermittent, with no sputum. Onset: The cp symptoms/episode began/occurred 6 day(s) ago. 22:10 Severity of symptoms: in the emergency department the symptoms are unchanged, despite cp home interventions. Associated signs and symptoms: Pertinent positives: sore throat, Pertinent negatives: chest pain, diarrhea, fever, vomiting. Historical: - Allergies: 22:38 No Known Allergies; ll3 - PMHx: 22:38 Myocardial infarction; "valve spasms"; Arthritis; Chronic obstructive lung disease; ll3 Anxiety; - Immunization history:: Client reports receiving the 2nd dose of the Covid vaccine. - Social history:: Smoking status: Patient reports the use of cigarette tobacco products, smokes one-half pack cigarettes per day. ROS: 22:15 Constitutional: Negative for fever, poor PO intake. cp 22:15 Eyes: Negative for injury, pain, redness, and discharge. cp 22:15 ENT: Positive for sore throat, Negative for drainage from ear(s), ear pain, difficulty swallowing, difficulty handling secretions. 22:15 Cardiovascular: Negative for chest pain, edema, palpitations. 22:15 Respiratory: Positive for cough, "sounds productive", Negative for shortness of breath, wheezing. 22:15 Abdomen/GI: Negative for abdominal pain, vomiting, diarrhea, constipation. 22:15 : Negative for urinary symptoms. 22:15 Neuro: Negative for altered mental status, dizziness, headache, weakness. 22:15 All other systems are negative. Exam: 22:20 Constitutional: The patient appears in no acute distress, alert, awake, cp non-diaphoretic, non-toxic, well developed, well nourished. 22:20 Head/Face: Normocephalic, atraumatic. cp 22:20 Eyes: Periorbital structures: appear normal, Conjunctiva: normal, no exudate, no injection, Sclera: no appreciated abnormality, Lids and lashes: appear normal, bilaterally. 22:20 ENT: External ear(s): are unremarkable, Nose: is normal, Mouth: Lips: moist, Oral mucosa: moist, Posterior pharynx: Airway: no evidence of obstruction, patent, Tonsils: are normal in appearance, erythema, that is mild, exudate, is not appreciated. 22:20 Neck: ROM/movement: is normal, is supple, without pain, no range of motions limitations, no meningismus, Lymph nodes: no appreciated lymphadenopathy. 22:20 Chest/axilla: Inspection: normal. 22:20 Cardiovascular: Rate: bradycardic, Rhythm: regular, Edema: is not appreciated, JVD: is not appreciated. 22:20 Respiratory: the patient does not display signs of respiratory distress, Respirations: normal, no use of accessory muscles, no retractions, Breath sounds: bronchial sounds, that are mild, are heard diffusely, stridor, is not appreciated, + upper airway congestion. wheezing: is not appreciated. 22:20 Abdomen/GI: Inspection: abdomen appears normal, Palpation: abdomen is soft and non-tender, in all quadrants. 22:20 Neuro: Orientation: to person, place \\T\\ time. Mentation: is normal, Motor: moves all fours, strength is normal, Sensation: is normal. Vital Signs: 22:36 BP 121 / 62; Pulse 52; Resp 16; Temp 98.0(O); Pulse Ox 98% on R/A; Weight 54.43 kg (R); ll3 Height 5 ft. 0 in. (152.40 cm) (R); 03/27 00:10 BP 121 / 51; Pulse 59; Resp 17; Pulse Ox 94% on R/A; ll3 01:10 BP 138 / 65; Pulse 71; Resp 16; Pulse Ox 95% on R/A; ll3 02:48 BP 137 / 65; Pulse 60; Resp 16; Pulse Ox 96% on R/A; ll3 03/26 22:36 Body Mass Index 23.44 (54.43 kg, 152.40 cm) ll3 MDM: 03/26 21:49 Patient medically screened. cp 23:00 Differential Diagnosis: Bronchitis Influenza Otitis Media Viral Syndrome Pneumonia cp Other strep throat. 03/27 01:28 Data reviewed: vital signs, nurses notes, lab test result(s), radiologic studies, plain cp films. 01:28 Test interpretation: by ED physician or midlevel provider: plain radiologic studies. cp Counseling: I had a detailed discussion with the patient and/or guardian regarding: the historical points, exam findings, and any diagnostic results supporting the discharge/admit diagnosis, lab results, radiology results, the need for outpatient follow up, a family practitioner, to return to the emergency department if symptoms worsen or persist or if there are any questions or concerns that arise at home. Response to treatment: the patient's symptoms have mildly improved after treatment, and as a result, I will discharge patient. ED course: VSS. Patient appears non-toxic and no signs of respiratory distress. Will discharge to home for continued monitoring. 03/26 22:02 Order name: Influenza Screen (a \\T\\ B); Complete Time: 23:47 cp 03/26 23:47 Interpretation: Reviewed. 03/26 22:02 Order name: Strep; Complete Time: 23:47 cp 03/26 22:02 Order name: COVID-19 SARS RT PCR (Document "Date of Onset" if Symptomatic); Complete cp Time: 00:09 03/27 00:10 Interpretation: Reviewed. 03/26 22:02 Order name: XRAY Chest Pa And Lat (2 Views) 03/26 23:27 Order name: Throat Culture [facility] 03/27 00:19 Order name: IV; Complete Time: 01:06 cp Administered Medications: 03/26 22:49 Drug: Albuterol 2.5 mg Route: Inhalation; ll3 03/27 00:11 Follow up: Response: No adverse reaction 3 03/26 22:49 Drug: AtroVENT (ipratropium) Aerosol 0.5 mg Route: Inhalation; ll3 03/27 00:11 Follow up: Response: No adverse reaction ll3 01:18 Drug: Dexamethasone 10 mg Route: IVP; Site: right antecubital; ll3 02:48 Follow up: Response: No adverse reaction 3 01:20 Drug: bebtelovimab 175 mg Route: IV; Rate: calculated rate; Site: right antecubital; ll3 02:48 Follow up: Response: No adverse reaction; IV Status: Completed infusion; IV Intake: 2ml 3 Disposition: 05:56 Co-signature as Attending Physician, Robert Red MD. rn Disposition Summary: 03/27/22 01:29 Discharge Ordered Location: Home cp Problem: new cp Symptoms: have improved cp Condition: Stable cp Diagnosis - Influenza due to other identified influenza virus with other respiratory cp manifestations - SARS-associated coronavirus as the cause of diseases classified elsewhere cp Followup: cp - With: Private Physician - When: 2 - 3 days - Reason: Worsening of condition Discharge Instructions: - Discharge Summary Sheet cp - Influenza, Adult cp - Aspirin and Your Heart cp - COVID-19 cp - Things to Know about the COVID-19 Pandemic - [facility] [place] - 10 Things You Can Do to Manage Your COVID-19 Symptoms at Home - [facility] [place] - COVID-19: Quarantine vs. Isolation - [facility] [place] - Prevent the Spread of COVID-19 if You Are Sick - [facility] [place] Forms: - Medication Reconciliation Form cp - Thank You Letter cp - Antibiotic Education cp - Prescription Opioid Use cp Prescriptions: - Bromfed DM 2-30-10 mg/5 mL Oral syrup - take 10 milliliter by ORAL route every 6 hours; 180 milliliter; Refills: 0, cp Product Selection Permitted - Ibuprofen 600 mg Oral Tablet - take 1 tablet by ORAL route every 8 hours As needed take with food; 30 tablet; cp Refills: 0, Product Selection Permitted Signatures: Dispatcher [employer] Robert Zapata MD MD rn Page, Corey, PA PA cp Loubet, Lynsea, RN RN ll3
[2022-03-27 02:56] VITALS: TEMP 98
[2022-03-27 03:00] VITALS: BP 137/65; O2SAT 96
--- NOTE | 2022-03-27 14:01 | RAD REPORT ---
EXAM DESCRIPTION: RAD - Chest Pa And Lat (2 Views) - 03/26/2022 10:21 pm COMPARISON None. CLINICAL HISTORY: [facility] MAIN COUGH FINDINGS: PA and lateral views of the chest demonstrate(s) a normal cardiomediastinal silhouette. No pneumothorax or pleural effusion. No consolidation or pulmonary edema. Linear atelectasis is noted in the left lower lung. Osseous structures are intact. IMPRESSION: No acute chest process. Electronically signed by: Maco Chang MD 03/26/2022 11:30 PM CDT Due to temporary technical issues with the PACS/Fluency reporting system, reports are being signed by the in house radiologists without review as a courtesy to insure prompt reporting. The interpreting radiologist is fully responsible for the content of the report.
== END 2022-03-27 02:49 | disposition home or self-care (01) ==
LOC: ER 21:15
DX: U07.1 COVID-19 (principal); J10.1 Influenza due to other identified influenza virus with other respiratory manifestations; F17.210 Nicotine dependence, cigarettes, uncomplicated; I25.2 Old myocardial infarction
CPT/HCPCS: 87070; 87081; 87804 ×2; 71046; U0003; J1100

== ENCOUNTER → 2023-11-14 | Emergency (ER) | payer OTHER ==
[~2023-11-14] MED LIST: CEPHALEXIN 250 MG CAP ONE; FLUCONAZOLE 100 MG TAB ONE; METHYLPREDNISOLONE 125 MG INJ ONE; SMZ./TMP. 800/160 MG TABLET ONE
--- OUTSIDE RECORDS SUMMARY | 2023-11-14 10:07 | XMS REPORT | Continuity of Care Document ---
Author Name Unknown Address [address] [place] [address] thconnect Address [address] [place] [address] Care Team Providers Care Cocktail Server Name Role Phone Raju_P Attending Clinician Unavailable Raju_P Admitting Clinician Unavailable Encounters Start Date/Time End Date/Time Encounter Type Admission Type Attending Clinicians Care Facility Care Department Encounter ID Source 2019-12-13 11:32:00 2019-12-13 11:32:00 Outpatient Raju_P [facility] [id number] [facility]
--- NOTE | 2023-11-14 11:01 | ER ---
Nurse's Notes [facility] Name: Chayo Sexton Age: 63 yrs Sex: Female : 1960 Arrival Date: 11/14/2023 Time: 10:04 Bed 12 Private MD: Manjit Mccartney E Diagnosis: Allergic contact dermatitis due to dyes Presentation: 11/14 10:35 Chief complaint: Patient states: Allergic reaction to hair dye. Started this AM. ll1 Coronavirus screen: Client denies travel out of the [place] in the last 14 days. At this time, the client does not indicate any symptoms associated with coronavirus-19. Ebola Screen: Patient denies travel to an Ebola-affected area in the 21 days before illness onset. Initial Sepsis Screen: Does the patient meet any 2 criteria? No. Patient's initial sepsis screen is negative. Does the patient have a suspected source of infection? Yes: Skin breakdown/wound. Risk Assessment: Do you want to hurt yourself or someone else? Patient reports no desire to harm self or others. Onset of symptoms was November 14, 2023. 10:35 Method Of Arrival: Ambulatory ll1 10:35 Acuity: INDIGO 4 ll1 Historical: - Allergies: 10:35 No Known Drug Allergies; ll1 - PMHx: 10:35 Anxiety; Chronic obstructive lung disease; Arthritis; Myocardial infarction; ll1 - PSHx: 10:35 section; hysterectomy; morphine pain pump placed and removed; Staph infection ll1 to back; - Immunization history:: Adult Immunizations up to date. - Social history:: Smoking status: Patient denies any tobacco usage or history of. - Family history:: not pertinent. - Hospitalizations: : No recent hospitalization is reported. Screenin:00 [facility] ED Fall Risk Assessment (Adult) Score/Fall Risk Level 0 - 2 = Low Risk hb Oriented to surroundings, Maintained a safe environment, Educated pt \T\ family on fall prevention, incl call for assistance when getting out of bed. Abuse screen: Denies threats or abuse. Denies injuries from another. Nutritional screening: No deficits noted. Tuberculosis screening: No symptoms or risk factors identified. Assessment: 11:00 General: Appears in no apparent distress. Behavior is calm, cooperative. Pain: Denies hb pain. Neuro: Level of Consciousness is awake, alert, obeys commands, Oriented to person, place, time, situation. Cardiovascular: Patient's skin is warm and dry. Respiratory: Respiratory effort is even, unlabored, Respiratory pattern is regular, symmetrical. GI: No signs and/or symptoms were reported involving the gastrointestinal system. : No signs and/or symptoms were reported regarding the genitourinary system. EENT: No signs and/or symptoms were reported regarding the EENT system. Derm: scalp irritation and pain. Vital Signs: 10:35 Pain 10/10; ll1 10:39 BP 127 / 87; Pulse 61; Resp 17; Temp 98; Pulse Ox 96% ; ll1 10:35 Pain Scale: Adult ll1 ED Course: 10:05 Patient arrived in ED. rg4 10:05 Manjit Mccartney MD is Private Physician. rg4 10:06 Robert Red MD is Attending Physician. rn 10:35 Triage completed. ll1 10:36 Arm band placed on Patient placed in an exam room, on a stretcher. ll1 10:40 Ileana Traore RN is Primary Nurse. hb 11:00 Patient has correct armband on for positive identification. Provided Education on: hb medication, follow up. 11:01 Manjit Mccartney MD is Referral Physician. rn 11:01 Referral Physician role handed off by Manjit Mccartney MD rn 11:12 No provider procedures requiring assistance completed. Patient did not have IV access hb during this emergency room visit. Administered Medications: 10:54 Drug: MethylPREDNISolone Sodium Succinate IM 125 mg IM once Route: IM; Site: right hb ventrogluteal; 10:54 Drug: Trimethoprim-Sulfamethoxazole PO (160 mg-800 mg (DS) 1 tablet PO once Route: PO; hb 10:54 Drug: Cephalexin PO 500 mg PO once Route: PO; hb 10:54 Drug: Fluconazole PO 150 mg PO once Route: PO; hb Medication: 11:13 VIS not applicable for this client. hb Outcome: 11:01 Discharge ordered by . rn 11:12 Discharged to home ambulatory, hb 11:12 Condition: stable 11:12 Discharge instructions given to patient, Instructed on discharge instructions, follow up and referral plans. medication usage, Demonstrated understanding of instructions, follow-up care, medications, Prescriptions given X 3, 11:13 Patient left the ED. hb Signatures: Robert Red MD MD rn Baxter, Heather, RN RN hb Garcia, Rubi rg4 Hakeem Moore, RN RN ll1
--- NOTE | 2023-11-14 11:01 | EDPHYS ---
Physician Documentation [facility] Name: Chayo Sexton Age: 63 yrs Sex: Female : 1960 Arrival Date: 11/14/2023 Time: 10:04 Bed 12 Private MD: Manjit Mccartney E ED Physician Robert Red HPI: 11/14 10:58 This 63 yrs old Female presents to ER via Ambulatory with complaints of Allergic rn Reaction to Hair Dye. 10:58 The patient presents with itching, localized swelling. Onset: The symptoms/episode rn began/occurred yesterday. Associated signs and symptoms: Pertinent positives: rash, Pertinent negatives: chest pain, fever, shortness of breath, Syncope. Possible causes: Hair dye. At home the patient or guardian has treated the symptoms with nothing. Severity of symptoms: At their worst the symptoms were mild in the emergency department the symptoms are unchanged. The patient has experienced similar episodes in the past. Patient reports dyed her hair yesterday and is now having allergic reaction. Has had allergic reaction to dye in the past. Reports focal swelling in the posterior scalp with mild drainage. No abscess. Itching present with rash.. Historical: - Allergies: 10:35 No Known Drug Allergies; ll1 - PMHx: 10:35 Anxiety; Chronic obstructive lung disease; Arthritis; Myocardial infarction; ll1 - PSHx: 10:35 section; hysterectomy; morphine pain pump placed and removed; Staph infection ll1 to back; - Immunization history:: Adult Immunizations up to date. - Social history:: Smoking status: Patient denies any tobacco usage or history of. - Family history:: not pertinent. - Hospitalizations: : No recent hospitalization is reported. ROS: 10:58 Constitutional: Negative for fever, chills, and weight loss, Neck: Negative for injury, rn pain, and swelling, Cardiovascular: Negative for chest pain, palpitations, and edema, Respiratory: Negative for shortness of breath, cough, wheezing, and pleuritic chest pain, Abdomen/GI: Negative for abdominal pain, nausea, vomiting, diarrhea, and constipation, Skin: Positive for rash and itching to posterior scalp Exam: 10:58 Constitutional: This is a well developed, well nourished patient who is awake, alert, rn and in no acute distress. Head/Face: Normocephalic, atraumatic. induration or fluctuance. Cardiovascular: Regular rate and rhythm. No pulse deficits. Respiratory: No increased work of breathing, no retractions or nasal flaring. Vital Signs: 10:35 Pain 10/10; ll1 10:39 BP 127 / 87; Pulse 61; Resp 17; Temp 98; Pulse Ox 96% ; ll1 10:35 Pain Scale: Adult ll1 MDM: 10:06 Patient medically screened. rn 10:58 Differential diagnosis: urticaria, Localized allergic reaction to hair dye, scalp rn infection. Data reviewed: vital signs, nurses notes, and as a result, I will discharge patient. Counseling: I had a detailed discussion with the patient and/or guardian regarding the historical points, exam findings, and any diagnostic results supporting the discharge/admit diagnosis, the need for outpatient follow up, to return to the emergency department if symptoms worsen or persist or if there are any questions or concerns that arise at home. Special discussion: I discussed with the patient/guardian in detail that at this point there is no indication for admission to the hospital. It is understood, however, that if the symptoms persist or worsen the patient needs to return immediately for re-evaluation. Administered Medications: 10:54 Drug: MethylPREDNISolone Sodium Succinate IM 125 mg IM once Route: IM; Site: right hb ventrogluteal; 10:54 Drug: Trimethoprim-Sulfamethoxazole PO (160 mg-800 mg (DS) 1 tablet PO once Route: PO; hb 10:54 Drug: Cephalexin PO 500 mg PO once Route: PO; hb 10:54 Drug: Fluconazole PO 150 mg PO once Route: PO; hb Disposition Summary: 11/14/23 11:01 Discharge Ordered Notes: Location: Home rn Problem: new rn Symptoms: are unchanged rn Condition: Stable rn Diagnosis - Allergic contact dermatitis due to dyes rn Followup: rn - With: Private Physician - When: As needed - Reason: Recheck today's complaints, Re-evaluation by your physician Discharge Instructions: - Discharge Summary Sheet rn - Contact Dermatitis rn Forms: - Medication Reconciliation Form rn - Thank You Letter rn - Antibiotic wrap turner - Prescription Opioid Use rn - Patient Portal Instructions rn - Leadership Thank You Letter rn Prescriptions: - Cephalexin 500 mg Oral Capsule - take 1 capsule ORAL route every 12 hours for 10 days; 20 capsule; Refills: 0, rn Product Selection Permitted - Prednisone 20 mg Oral Tablet - take 3 tablets ORAL route once daily for 5 days; 15 tablet; Refills: 0, Product rn Selection Permitted - Bactrim DS 800-160 mg Oral Tablet - take 1 tablet ORAL route every 12 hours for 10 days; 20 tablet; Refills: 0, rn Product Selection Permitted Signatures: Robert Red MD MD rn Baxter, Heather, RN RN Hakeem Moore RN RN ll1
[2023-11-14 11:32] VITALS: BP 127/87; TEMP 98; O2SAT 96
== END ==
LOC: ER 10:04
DX: L23.4 Allergic contact dermatitis due to dyes (principal)
CPT/HCPCS: 96372; 99284; J2930

== ENCOUNTER 2023-12-13 15:10 | Inpatient (IN) | payer OTHER ==
--- OUTSIDE RECORDS SUMMARY | 2023-12-13 15:12 | XMS REPORT | Continuity of Care Document ---
Author Name Unknown Address [address] [place] [address] thconnect Address [address] [place] [address] Care Team Providers Care Staff Nurse Midwife Name Role Phone Raju_P Attending Clinician Unavailable Raju_P Admitting Clinician Unavailable Encounters Start Date/Time End Date/Time Encounter Type Admission Type Attending Clinicians Care Facility Care Department Encounter ID Source 2019-12-13 11:32:00 2019-12-13 11:32:00 Outpatient Raju[facility]P [facility] [id number]
[2023-12-13] MEDS ORDERED: FAMOTIDINE 20 MG/2 ML VIAL IV ONE (15:41)
[2023-12-13 15:47] LABS: Absolute Eosinophils 0.1 K/uL (0-0.5); Absolute Lymphocytes (CBC) 0.8 K/uL (0.7-4.9); Absolute Monocytes 0.6 K/uL (0.1-1.3); Absolute Neutrophil 11.7 K/uL (1.8-8.0); Basophils % 0.3 % (0-1.3); Eosinophils % 0.4 % (0-4.4); Hematocrit 48.4 % (36.0-45.0); Hemoglobin 16.2 g/dL (12.0-15.0); Lymphocytes % 6.3 % (15.3-44.8); MCH 31.7 pg (27.0-35.0); MCHC 33.5 g/dL (32.0-36.0); MCV 94.8 fL (80-100); MPV 9.8 fL (7.6-11.3); Monocytes % 4.2 % (3.3-12.3); Neutrophils % 88.8 % (41.7-73.7); Platelets 227 thou/uL (152-406); Red Cell Distribution Width 13.9 % (12.1-15.2)
[2023-12-13 15:49] LABS: PT Prothrombin Time 11.7 SECONDS (9.5-12.5); Protime INR 1.07
--- NOTE | 2023-12-13 16:10 | RAD REPORT ---
EXAM DESCRIPTION: RAD - Chest Single View - 12/13/2023 3:50 pm CLINICAL HISTORY: CHEST PAIN COMPARISON: Chest Pa And Lat (2 Views) dated 01/13/2023; Chest Pa And Lat (2 Views) dated 03/26/2022; C hest Pa And Lat (2 Views) dated 01/12/2022; Chest Single View dated 04/03/2017 FINDINGS: Lines: None. Lungs: Nonspecific increase coarsening of the pulmonary interstitial markings. No evidence of edema o r pneumonia. Pleural: No significant pleural effusions or pneumothorax. Cardiac: The heart size is within normal limits. Mediastinum: Within normal limits. Bones: No acute fractures. Other: None IMPRESSION: No acute cardiopulmonary disease.
[2023-12-13 16:12] LABS: ALT/SGPT 17 U/L (13-56); AST/SGOT 17 U/L (15-37); Albumin 3.7 g/dL (3.4-5.0); Albumin/Globulin Ratio 0.9 (1.1-1.8); Alkaline Phosphatase 103 U/L (45-117); Anion Gap 10.5 mEq/L (5.0-15.0); BUN Blood Urea Nitrogen 10 mg/dL (7-18); Bicarbonate 23 mEq/L (21-32); Bilirubin Direct < 0.1 mg/dL (0-0.2); Bilirubin Indirect, Calculated ND mg/dL (0.2-0.8); Bilirubin Total 0.3 mg/dL (0.2-1.0); Globulin 4.1 g/dL (2.3-3.5); Glomerular Filtration Rate 65 ml/min (=/>90); Glucose Level 96 mg/dL (74-106); HDL Cholesterol 68 mg/dL (40-60); LDL Cholesterol, Calculated 151 mg/dL (<130); LDL Cholesterol,Calc NonReport 151; Lipase 30 U/L (13-75); Magnesium 1.9 mg/dL (1.6-2.4); NT PRO-BNP 384 pg/mL (<125); Potassium 3.5 mEq/L (3.5-5.1); Protein, Total 7.8 g/dL (6.4-8.2); Sodium Level 135 mEq/L (136-145); Troponin High Sensitivity 21.7 pg/mL (<58.9)
[2023-12-13] MEDS ORDERED: IPRATROPIUM BROM 0.5MG/2.5ML ONE (17:16)
[2023-12-13] MEDS ORDERED: METHYLPREDNISOLONE 125 MG INJ ONE (17:16)
[2023-12-13] MEDS ORDERED: ONDANSETRON 4 MG/2 ML VIAL ONE (17:16)
[2023-12-13] MEDS ORDERED: MORPHINE 2 MG/ML SYR ONE (17:17)
[2023-12-13] MEDS ORDERED: LEVALBUTEROL 1.25 MG/3 ML NEB ONE (17:17)
--- NOTE | 2023-12-13 17:21 | EDPHYS ---
Physician Documentation [facility] Name: Chayo Sexton Age: 63 yrs Sex: Female : 1960 Arrival Date: 12/13/2023 Time: 15:10 Bed 14 Private MD: ED Physician Rick Connolly HPI: 12/12 17:05 This 63 yrs old Female presents to ER via EMS with complaints of Chest Pain. nataliia 17:05 The patient or guardian reports chest pain that is located primarily in the substernal nataliia area, anterior chest wall, left. Onset: just prior to arrival, today. The pain does not radiate. Associated signs and symptoms: Pertinent positives: abdominal pain, cough, shortness of breath. The chest pain is described as sharp. Modifying factors: The symptoms are alleviated by remaining still, the symptoms are aggravated by breathing, cough, deep breath. Severity of pain: At its worst the pain was moderate in the emergency department the pain has improved moderately. The patient has not experienced similar symptoms in the past. Historical: - Allergies: 15:32 No Known Allergies; ph - PMHx: 15:32 Anxiety; Arthritis; Chronic obstructive lung disease; Myocardial infarction; ph - PSHx: 15:32 section; hysterectomy; morphine pain pump placed and removed; Staph infection ph to back; - Immunization history:: Adult Immunizations unknown. - Social history:: Smoking status: unknown. ROS: 17:09 Constitutional: Negative for fever, chills, and weight loss, Eyes: Negative for injury, nataliia pain, redness, and discharge, ENT: Negative for injury, pain, and discharge, Neck: Negative for injury, pain, and swelling, Back: Negative for injury and pain, : Negative for injury, bleeding, discharge, and swelling, MS/Extremity: Negative for injury and deformity, Skin: Negative for injury, rash, and discoloration, Neuro: Negative for headache, weakness, numbness, tingling, and seizure, Psych: Negative for depression, anxiety, suicide ideation, homicidal ideation, and hallucinations, Allergy/Immunology: Negative for hives, rash, and allergies, Endocrine: Negative for neck swelling, polydipsia, polyuria, polyphagia, and marked weight changes, Hematologic/Lymphatic: Negative for swollen nodes, abnormal bleeding, and unusual bruising, 17:09 Cardiovascular: Positive for chest pain, of the chest, 17:09 Respiratory: Positive for cough, shortness of breath, wheezing, expiratory, 17:09 Abdomen/GI: Positive for abdominal pain, abdominal distension, Exam: 17:09 Constitutional: This is a well developed, well nourished patient who is awake, alert, nataliia and in no acute distress. Head/Face: Normocephalic, atraumatic. Eyes: Pupils equal round and reactive to light, extra-ocular motions intact. Lids and lashes normal. Conjunctiva and sclera are non-icteric and not injected. Cornea within normal limits. Periorbital areas with no swelling, redness, or edema. ENT: Nares patent. No nasal discharge, no septal abnormalities noted. Tympanic membranes are normal and external auditory canals are clear. Oropharynx with no redness, swelling, or masses, exudates, or evidence of obstruction, uvula midline. Mucous membranes moist. Neck: Trachea midline, no thyromegaly or masses palpated, and no cervical lymphadenopathy. Supple, full range of motion without nuchal rigidity, or vertebral point tenderness. No Meningismus. Chest/axilla: Normal chest wall appearance and motion. Nontender with no deformity. No lesions are appreciated. Cardiovascular: Regular rate and rhythm with a normal S1 and S2. No gallops, murmurs, or rubs. Normal PMI, no JVD. No pulse deficits. Back: No spinal tenderness. No costovertebral tenderness. Full range of motion. Female : Normal external genitalia. Skin: Warm, dry with normal turgor. Normal color with no rashes, no lesions, and no evidence of cellulitis. MS/ Extremity: Pulses equal, no cyanosis. Neurovascular intact. Full, normal range of motion. Neuro: Awake and alert, GCS 15, oriented to person, place, time, and situation. Cranial nerves II-XII grossly intact. Motor strength 5/5 in all extremities. Sensory grossly intact. Cerebellar exam normal. Normal gait. Psych: Awake, alert, with orientation to person, place and time. Behavior, mood, and affect are within normal limits. 17:09 ECG was reviewed by the Attending Physician. 17:09 Respiratory: the patient does not display signs of respiratory distress, Respirations: normal, no acute changes, Breath sounds: bronchial sounds, that are mild, are scattered, rhonchi, that are mild, are scattered, wheezing: expiratory is scattered, Respiratory rate: 18 Vital Signs: 15:28 BP 179 / 106; Pulse 71; Resp 18; Pulse Ox 100% on R/A; ph 17:23 Weight 56.7 kg; Height 5 ft. 0 in. ; ph 17:48 BP 135 / 94 LA Sitting (auto/reg); Pulse 73; Resp 18 S; Pulse Ox 96% on R/A; jp5 18:30 BP 135 / 98; Pulse 77; Resp 18; Pulse Ox 100% on R/A; jp5 19:30 BP 116 / 81; Pulse 80; Resp 17 S; Temp 98.4; Pulse Ox 98% on R/A; ha1 17:23 Body Mass Index 24.41 (56.70 kg, 152.4 cm) ph MDM: 15:23 Patient medically screened. nataliia 17:13 Differential diagnosis: abnormal EKG, acute myocardial infarction, acute pericarditis, nataliia anxiety, chest wall pain, costochondritis, hiatal hernia, pancreatitis, pericarditis, pleurisy, pneumonia, pneumothorax, pulmonary embolus, stable angina, thoracic aortic disection, unstable angina, appendicitis, bowel obstruction, gastritis, Hepatitis, non-specific abd pain, pancreatitis, Peptic Ulcer Disease, Perf. Duodenal Ulcer, Peritonitis, Ureterolithiasis, urinary tract infection. HEART Score: History: Moderately Suspicious (1), ECG: Non specific repolarization disturbance / LBTB / PM (1), Age: > 45 and < 65 years (1), Risk Factors: > or = 3 Risk factors for atherosclerotic disease (2), [Hypercholesterolemia] [Hypertension] [Active Smoker] [+ Family HX] Troponin: < or = 1 x Normal Limit (0). The patient was given aspirin in the Emergency Department. DERRICK Risk Score: 1 - Three or more CAD risk factors, 1- Known CAD, 1 - ASA use in past 7 days, 1 - Recent [<24hrs] Severe Angina, TOTAL SCORE = 4. Data reviewed: vital signs, nurses notes, EMS record, lab test result(s), EKG, radiologic studies, CT scan, plain films. Consideration of Admission/Observation Patient was admitted/placed on observation. Escalation of care including admission/observation considered. I considered the following discharge prescriptions or medication management in the emergency department Medications were administered in the Emergency Department. See MAR. Independent interpretation of the following test(s) in the Emergency Department EKG: See my EKG interpretation above. Test considered but Not performed: Ultrasound NO ABD USG. Historians other than the Patient: EMS: EMS WELL INFORMED. Care significantly affected by the following chronic conditions: Hypertension, Chronic Obstructive Pulmonary Disease, ANXIETY, CAD, VT. Counseling: I had a detailed discussion with the patient and/or guardian regarding the historical points, exam findings, and any diagnostic results supporting the discharge/admit diagnosis, the presence of at least one elevated blood pressure reading (>120/80) during this emergency department visit, lab results, radiology results, the need for further work-up and treatment in the hospital. 12/12 15:24 Order name: Basic Metabolic Panel; Complete Time: 17:03 12/12 15:24 Order name: CBC with Diff; Complete Time: 17:03 12/12 15:24 Order name: LFT's; Complete Time: 17:03 12/12 15:24 Order name: Magnesium; Complete Time: 17:03 12/12 15:24 Order name: NT PRO-BNP; Complete Time: 17:03 12/12 15:24 Order name: PT-INR; Complete Time: 17:03 12/12 15:24 Order name: Troponin HS; Complete Time: 17:03 12/12 15:24 Order name: Basic Metabolic Panel [facility] 12/12 15:24 Order name: CBC with Diff [facility] 12/12 15:24 Order name: LFT's [facility] 12/12 15:24 Order name: Magnesium [facility] 12/12 15:24 Order name: NT PRO-BNP [facility] 12/12 15:24 Order name: PT-INR [facility] 12/12 15:24 Order name: Troponin HS [facility] 12/12 15:24 Order name: Lipase; Complete Time: 17:03 [facility] 12/12 15:24 Order name: Lipid Profile; Complete Time: 17:03 [facility] 12/12 15:24 Order name: Urinalysis w/ reflexes; Complete Time: 18:10 [facility] 12/12 17:21 Order name: Blood Culture Adult (2) 12/12 17:21 Order name: Lactate w/ 2H reflex if indic. 12/12 15:24 Order name: XRAY Chest (1 view); Complete Time: 17:03 [facility] 12/12 17:05 Order name: CT Chest For PE Angio [facility] 12/12 17:05 Order name: CT Abd/Pelvis - IV Contrast Only [facility] 12/12 18:15 Order name: CT; Complete Time: 19:02 [facility] 12/12 18:21 Order name: CT; Complete Time: 19:02 [facility] 12/12 15:24 Order name: EKG; Complete Time: 15:24 ph 12/12 15:24 Order name: EKG; Complete Time: 15:25 nataliia 12/12 17:32 Order name: CONS Physician Consult [facility] 12/12 15:24 Order name: Cardiac monitoring; Complete Time: 15:35 ph 12/12 15:24 Order name: EKG - Nurse/Tech; Complete Time: 15:35 ph 12/12 15:24 Order name: IV Saline Lock; Complete Time: 15:36 ph 12/12 15:24 Order name: Labs collected and sent; Complete Time: 15:36 ph 12/12 15:24 Order name: O2 Per Protocol; Complete Time: 17:38 ph 12/12 15:24 Order name: O2 Sat Monitoring; Complete Time: 15:46 ph 12/12 15:24 Order name: Cardiac monitoring; Complete Time: 17:38 nataliia 12/12 15:24 Order name: EKG - Nurse/Tech; Complete Time: 17:38 nataliia 12/12 15:24 Order name: IV Saline Lock; Complete Time: 17:38 nataliia 12/12 15:24 Order name: Labs collected and sent; Complete Time: 17:38 ntaaliia 12/12 15:24 Order name: O2 Per Protocol; Complete Time: 17:38 [facility] 12/12 15:24 Order name: O2 Sat Monitoring; Complete Time: 17:38 [facility] 12/12 17:51 Order name: Labs - recollect needed: recollect lactic acid/ specimen collected in wrong eb tube; Complete Time: 18:54 EC:09 Rate is 74 beats/min. Rhythm is regular. QRS [place] is Normal. TX interval is normal. QRS nataliia interval is normal. QT interval is normal. No Q waves. T waves are Normal. No ST changes noted. Clinical impression: NSR w/ Non-specific ST/T Changes and No evidence of ischemia. Interpreted by me. Reviewed by me. 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): aspirinchewable tablet 162 mg PO once ph 15:46 Drug: Famotidine IVP 20 mg IVP once; dilute with 10 mL 0.9% NaCl; give over 2 minutes ph Route: IVP; Site: right forearm; 19:00 Follow up: Response: No adverse reaction ph 17:23 Drug: morphine IVP or IV 2 mg IVP once over 4 mins Route: IVP; Infused Over: 4 mins; ph Site: right forearm; 18:59 Follow up: Response: No adverse reaction; Pain is decreased ph 17:23 Drug: Ondansetron IVP 4 mg IVP once; over 2 minutes Route: IVP; Site: right forearm; ph 18:58 Follow up: Response: No adverse reaction; Pain is decreased ph 17:23 Drug: MethylPrednisoLONE IVP 125 mg IVP once Route: IVP; Site: right forearm; ph 18:58 Follow up: Response: No adverse reaction ph 17:44 Drug: LevOfloxacin PO 500 mg PO once Route: PO; jp5 18:58 Follow up: Response: No adverse reaction ph 17:46 Drug: Levalbuterol Inhalation 2.5 mg Inhalation once Route: Inhalation; jp5 18:58 Follow up: Response: No adverse reaction ph 17:46 Drug: Ipratropium Inhalation Aerosol 0.5 mg Inhalation once Route: Inhalation; jp5 18:58 Follow up: Response: No adverse reaction ph 18:47 Drug: Enoxaparin Sub-Q 1 mg/kg Sub-Q once Route: Sub-Q; Site: abdomen; jp5 18:59 Follow up: Response: No adverse reaction ph 20:06 Not Given (Patient Refused): morphineor iv 2 mg IVP once over 4 mins ha1 Disposition Summary: 12/13/23 17:20 Hospitalization Ordered Notes: Hospitalization Status: Observation nataliia Provider: Nani Hatfield cha Location: Telemetry/MedSurg (observation) nataliia Condition: Fair nataliia Problem: new nataliia Symptoms: have improved nataliia Bed/Room Type: Standard [facility] Room Assignment: 209(12/13/23 18:57) eb Diagnosis - Chest pain, unspecified nataliia - Chest pain on breathing nataliia - Essential (primary) hypertension nataliia - COPD/ Chronic obstructive pulmonary disease with (acute) exacerbation nataliia - Tobacco abuse counseling nataliia - Tobacco use nataliia - Elevated white blood cell count nataliia Forms: - Medication Reconciliation Form nataliia - SBAR form nataliia - Leadership Thank You Letter nataliia Signatures: Dispatcher [employer] EDMS Rick Connolly MD MD cha Hall, Patricia, RN RN ph Any Alford Jailene RN RN jp5 Danette Durham RN ha1 Corrections: (The following items were deleted from the chart) 15:43 15:24 Chest Single View+RAD.RAD.BRZ ordered. EDMS EDMS 15:44 15:24 D-DIMER+COAG.LAB.BRZ ordered. EDMS EDMS 18:57 17:20 nataliia thacker
--- NOTE | 2023-12-13 17:21 | ER ---
Nurse's Notes [facility] Name: Chayo Sexton Age: 63 yrs Sex: Female : 1960 Arrival Date: 12/13/2023 Time: 15:10 Bed 14 Private MD: Diagnosis: Chest pain, unspecified;Chest pain on breathing;Essential (primary) hypertension;COPD/ Chronic obstructive pulmonary disease with (acute) exacerbation;Tobacco abuse counseling;Tobacco use;Elevated white blood cell count Presentation: 12/12 15:28 Chief complaint: EMS states: Chest pain that started this morning, hx of [place], self ph administered SL nitro x 4 and 325 ASA x 2, 12 lead NSR, VSS, also reports SOB. Coronavirus screen: Vaccine status: Patient reports being unvaccinated. Ebola Screen: No symptoms or risks identified at this time. Initial Sepsis Screen: Does the patient meet any 2 criteria? No. Patient's initial sepsis screen is negative. Does the patient have a suspected source of infection? No. Patient's initial sepsis screen is negative. Risk Assessment: Do you want to hurt yourself or someone else? Patient reports no desire to harm self or others. 15:28 Acuity: INDIGO 2 ph 15:28 Method Of Arrival: EMS: [facility] 15:34 Onset of symptoms was December 13, 2023. Triage Assessment: 15:33 General: Appears in no apparent distress. Behavior is cooperative, anxious. Pain: ph Complains of pain in left breast. Neuro: Level of Consciousness is awake, alert, obeys commands, Oriented to person, place, time, situation. Cardiovascular: Reports chest pain, shortness of breath. Cardiovascular: Rhythm is sinus rhythm Chest pain is located in left anterior posterior. Respiratory: Airway is patent Respiratory effort is even, unlabored. Historical: - Allergies: 15:32 No Known Allergies; ph - PMHx: 15:32 Anxiety; Arthritis; Chronic obstructive lung disease; Myocardial infarction; ph - PSHx: 15:32 section; hysterectomy; morphine pain pump placed and removed; Staph infection ph to back; - Immunization history:: Adult Immunizations unknown. - Social history:: Smoking status: unknown. Screenin:34 [facility] ED Fall Risk Assessment (Adult) History of falling in the last 3 months, ph including since admission No falls in past 3 months (0 pts) Confusion or Disorientation No (0 pts) Intoxicated or Sedated No (0 pts) Impaired Gait No (0 pts) Mobility Assist Device Used No (0 pt) Altered Elimination No (0 pt) Score/Fall Risk Level 0 - 2 = Low Risk Oriented to surroundings, Maintained a safe environment, Assessed \T\ reinforced patient's understanding of fall precautions, Hourly rounding (assess needs \T\ fall precautionary measures) done. Abuse screen: Denies threats or abuse. Denies injuries from another. Nutritional screening: No deficits noted. Tuberculosis screening: No symptoms or risk factors identified. Assessment: 15:30 General: Appears in no apparent distress. uncomfortable, unkempt, Behavior is calm, jp5 cooperative, appropriate for age, Reports Denies fever. Pain: Complains of pain in chest. Neuro: Level of Consciousness is awake, alert, obeys commands, Oriented to person, place, time, situation, Appropriate for age. Cardiovascular: Chest pain is described as severe. Respiratory: Airway is patent Respiratory effort is labored. 19:30 Reassessment: Patient and/or family updated on plan of care and expected duration. Pain ha1 level reassessed. Patient is alert, oriented x 3, equal unlabored respirations, skin warm/dry/pink. Patient denies pain at this time. Patient states feeling better. Patient states symptoms have improved. 19:30 Reassessment: faxed report sheet. called nurse station upstairs. 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 ha1 20:00 Reassessment: informed receiving nurse patient will be going up in few minutes. ha1 Vital Signs: 15:28 BP 179 / 106; Pulse 71; Resp 18; Pulse Ox 100% on R/A; ph 17:23 Weight 56.7 kg; Height 5 ft. 0 in. ; ph 17:48 BP 135 / 94 LA Sitting (auto/reg); Pulse 73; Resp 18 S; Pulse Ox 96% on R/A; jp5 18:30 BP 135 / 98; Pulse 77; Resp 18; Pulse Ox 100% on R/A; jp5 19:30 BP 116 / 81; Pulse 80; Resp 17 S; Temp 98.4; Pulse Ox 98% on R/A; ha1 17:23 Body Mass Index 24.41 (56.70 kg, 152.4 cm) ph ED Course: 15:21 Patient arrived in ED. ph 15:22 Rick Connolly MD is Attending Physician. nataliia 15:24 Arm band placed on Patient placed in an exam room, on a stretcher, on rn cardiac cath, ph on pulse oximetry. EKG completed in triage. Results shown to MD. 15:28 Caren Caban, RN is Primary Nurse. ph 15:32 Triage completed. ph 15:34 Patient has correct armband on for positive identification. Placed in gown. Bed in low ph position. Call light in reach. Side rails up X2. Client placed on continuous cardiac and pulse oximetry monitoring. NIBP monitoring applied. clinical research monitor on. 15:34 Maintain EMS IV. Dressing intact. Site clean \T\ dry. Gauge \T\ site: 20 R wrist. Inserted ph saline lock: 22 gauge in right forearm, using aseptic technique. Patient maintains SpO2 saturation greater than 95% on room air. 15:52 XRAY Chest (1 view) In Process Unspecified. EDMS 17:18 Nani Hatfield MD is Hospitalizing Provider. nataliia 17:44 Blood Culture Adult (2) Sent. jp5 17:44 Lactate w/ 2H reflex if indic. Sent. jp5 17:44 Urinalysis w/ reflexes Sent. jp5 17:[address] via stretcher. ph 19:00 No provider procedures requiring assistance completed. Patient admitted, IV remains in ph place. 20:06 Provided Education on: need for admit . 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): aspirinchewable tablet 162 mg PO once ph 15:46 Drug: Famotidine IVP 20 mg IVP once; dilute with 10 mL 0.9% NaCl; give over 2 minutes ph Route: IVP; Site: right forearm; 19:00 Follow up: Response: No adverse reaction ph 17:23 Drug: morphine IVP or IV 2 mg IVP once over 4 mins Route: IVP; Infused Over: 4 mins; ph Site: right forearm; 18:59 Follow up: Response: No adverse reaction; Pain is decreased ph 17:23 Drug: Ondansetron IVP 4 mg IVP once; over 2 minutes Route: IVP; Site: right forearm; ph 18:58 Follow up: Response: No adverse reaction; Pain is decreased ph 17:23 Drug: MethylPrednisoLONE IVP 125 mg IVP once Route: IVP; Site: right forearm; ph 18:58 Follow up: Response: No adverse reaction ph 17:44 Drug: LevOfloxacin PO 500 mg PO once Route: PO; jp5 18:58 Follow up: Response: No adverse reaction ph 17:46 Drug: Levalbuterol Inhalation 2.5 mg Inhalation once Route: Inhalation; jp5 18:58 Follow up: Response: No adverse reaction ph 17:46 Drug: Ipratropium Inhalation Aerosol 0.5 mg Inhalation once Route: Inhalation; jp5 18:58 Follow up: Response: No adverse reaction ph 18:47 Drug: Enoxaparin Sub-Q 1 mg/kg Sub-Q once Route: Sub-Q; Site: abdomen; jp5 18:59 Follow up: Response: No adverse reaction ph 20:06 Not Given (Patient Refused): morphineor iv 2 mg IVP once over 4 mins ha1 Medication: 15:34 VIS not applicable for this client. ph Outcome: 17:20 Decision to Hospitalize by Provider. nataliia 20:04 Admitted to Med/surg accompanied by natalee, via wheelchair, room 209, with chart, Report ha1 called to MARIS Phillips 20:04 Condition: stable 20:04 Instructed on the need for admit, Demonstrated understanding of instructions, 20:08 Patient left the ED. ha1 Signatures: Dispatcher [employer] EDMS Rick Connolly MD MD cha Hall, Patricia, RN RN ph Ayala, Heidy, RN RN [facility] Linda Blanc RN RN 5 Corrections: (The following items were deleted from the chart) 17:53 15:30 Pain: Complains of pain in chest jp5 jp5 17:54 15:30 General: Appears in no apparent distress. uncomfortable, unkempt, Behavior is jp5 calm, cooperative, appropriate for age, Smells of Reports Denies fever, jp5 17:54 17:53 General: jp5 jp5
[2023-12-13] MEDS ORDERED: ENOXAPARIN 60 MG/0.6 ML SQ ONE (17:28)
[2023-12-13] MEDS ORDERED: levoFLOXacin 250 MG TAB ONE (17:28)
--- NOTE | 2023-12-13 17:32 | P.HP ---
Certification for Inpatient Patient admitted to: Inpatient With expected LOS: <2 Midnights <Viola Ibanez - Last Filed: 12/13/23 17:43> Patient History Date of Service: 12/13/23 Reason for admission: Chest pain History of Present Illness: 63-year-old lady with a past medical history of COPD, DC, anxiety, arthritis, presents to the emergency room with chest pain. Reports chest pain is substernal, does not radiate, reports symptoms started today. Reports history of COPD, reports associated cough, shortness of breath, abdominal pain. Shortness of breath is worse with exertion. Reports symptoms mildly improved with IV medicines from the emergency room. No reported nausea vomiting diarrhea, edema, dizziness. Plan to admit for chest pain rule out DC, COPD exacerbation, vital signs BP 179 / 106; Pulse 71; Resp 18; Pulse Ox 100% on R/A; 74 beats/min. Rhythm is regular. QRS [place] is Normal. IN interval is normal. QRS interval is normal. QT interval is normal. No Q waves. T waves are Normal. No ST changes noted. Clinical impression: NSR w/ Non-specific ST/T Changes and No evidence of ischemia. - Past Medical/Surgical History Diabetic: No -: Coronary artery disease -: Hypertension -: Arthritis -: Scoliosis -: C-sections x2 -: Hysterectomy -: Pain pump placement/removal Psychosocial/ Personal History: The patient reports a significant other - Family History Sister -: Heart disease - Social History Alcohol use: Yes CD- Drugs: No Caffeine use: Yes <Viola Ibanez - Last Filed: 12/13/23 17:43> Date of Service: 12/14/23 <Nani Hatfield - Last Filed: 12/14/23 16:33> Allergies No Known Drug Allergies Allergy (Verified 04/25/15 10:22) Unknown No Known Allergies Allergy (Uncoded 04/03/17 14:14) Unknown Home Medications: Citalopram Hydrobromide [Celexa] 40 mg PO DAILY 04/03/17 Diltiazem HCl [Cartia Xt] 180 mg PO DAILY 04/03/17 Gabapentin 800 mg PO BID 04/03/17 ALPRAZolam [Xanax] 1 mg PO TID PRN 12/13/23 Aspirin [Aspirin EC 325 MG] 325 mg PO DAILY 12/13/23 Review of Systems Per HPI <Viola Ibanez - Last Filed: 12/13/23 17:43> Physical Examination - Physical Exam General: Alert, In no apparent distress, Oriented x3 HEENT: Atraumatic, Normocephalic Neck: Supple, JVD not distended Respiratory: Expiratory wheezes, Other (Productive cough) Cardiovascular: Normal pulses, Regular rate/rhythm Capillary refill: <2 Seconds Gastrointestinal: Normal bowel sounds, Soft and benign Musculoskeletal: No clubbing, No swelling Integumentary: No rashes, No breakdown Neurological: Normal speech, Normal strength at 5/5 x4 extr - Studies Laboratory Data (last 24 hrs) 12/13/23 12/13/23 12/13/23 15:35 15:35 15:35 WBC 13.20 H Hgb 16.2 H Hct 48.4 H Plt Count 227 PT 11.7 INR 1.07 Sodium 135 L Potassium 3.5 BUN 10 Creatinine 0.99 Glucose 96 Magnesium 1.9 Total Bilirubin 0.3 AST 17 ALT 17 Alkaline Phosphatase 103 Triglycerides 147 Cholesterol 248 H HDL Cholesterol 68 H Cholesterol/HDL Ratio 3.65 Lipase 30 <Viola Ibanez - Last Filed: 12/13/23 17:43> - Studies Laboratory Data (last 24 hrs) 12/13/23 12/13/23 12/13/23 15:35 15:35 15:35 WBC 13.20 H Hgb 16.2 H Hct 48.4 H Plt Count 227 PT 11.7 INR 1.07 Sodium 135 L Potassium 3.5 BUN 10 Creatinine 0.99 Glucose 96 Magnesium 1.9 Total Bilirubin 0.3 AST 17 ALT 17 Alkaline Phosphatase 103 Triglycerides 147 Cholesterol 248 H HDL Cholesterol 68 H Cholesterol/HDL Ratio 3.65 Lipase 30 <Nani Hatfield - Last Filed: 12/14/23 16:33> Assessment and Plan - Plan Assessment plan Chest pain rule out DC , Telemetry, trend troponins, aspirin, as needed analgesics, as needed antiemet ics, lipid panel COPD exacerbation History of COPD Tobacco use O2 2 L keep sats greater than 92%, nebs, steroids, Levaquin, Educated on smoking cessation Full code DVT Lovenox Diet cardiac Disposition Home Discharge Plan: Home - Advance Directives Does patient have a Living Will: No Does patient have a Durable POA for Healthcare: No - Code Status/Comfort Care Code Status: Full Code Critical Care: No Time Spent Managing Pts Care (In Minutes): 55 <Viola Ibanez - Last Filed: 12/13/23 17:43> - Plan Pt seen and examined. I agree with the note by the MOLD CUTTING MACHINE OPERATOR. Pt is a 63yo female with past medical history of Coronary artery disease, Htn, Arthritis, and Scoliosis who presents with chest pain. The chest pain started a few day ago and progressively worsened. it is substernal, non-radiating and sharp in nature with severity of 7/10. Taking a deep breath makes it worse. On admission, lab studies show wbc 13.2, Hgb 16.2, K 3.5, Cr 0.99, BNP 384, LDL 151. EKG shows NSR. At bedside, pt is in NAD. A/P Chest pain/NSTEMI: Will r/o ACS. Will trend troponin Q6h. troponin is 21.7 -> 150.2. Will keep pt NPO after midnight for NM stress test. Will continue therapeutic lovenox, aspirin and statin. Will check lipid panel. Possible pyelonephritis; Per CT abd. Will give milad and f/u urine cx. Nausea and vomiting: Continue prn antiemetic Hx of COPD: Continue prn duoneb and oxygen Tobacco abuse: Pt was advised to quit smoking. Will give nicotine patch DVT ppx: lovenox Code: full Physician Review Additional Text: Pt seen and examined. I agree with the note by the MOLD CUTTING MACHINE OPERATOR. Pt is a 63yo female with past medical history of Coronary artery disease, Htn, Arthritis, and Scoliosis who presents with chest pain. The chest pain started a few day ago and progressively worsened. it is substernal, non-radiating and sharp in nature with severity of 7/10. Taking a deep breath makes it worse. On admission, lab studies show wbc 13.2, Hgb 16.2, K 3.5, Cr 0.99, BNP 384, LDL 151. EKG shows NSR. At bedside, pt is in NAD. A/P Chest pain: Will r/o ACS. <Nani Hatfield - Last Filed: 12/14/23 16:33>
[2023-12-13] MEDS ORDERED: DIPHENHYDRAMINE 25 MG TAB/CAP PO PRN (17:35)
[2023-12-13 17:52] LABS: Specific Gravity 1.011 (1.005-1.030); Sqamous Epithelial <5 /HPF (None Seen); Urine Bacteria None Seen /HPF (<20); Urine Bilirubin NEGATIVE (Negative); Urine Blood Trace (Negative); Urine Clarity Turbid (Clear); Urine Color Colorless (Yellow); Urine Culture Reflex Order NOT NEEDED; Urine Glucose NEGATIVE (Negative); Urine Ketones 1+ (Negative); Urine Microscopic Reflex YN ORDER UMIC; Urine Mucus Slight /HPF (None Seen); Urine Nitrite NEGATIVE (Negative); Urine Protein 1+ (Negative); Urine RBC <5 /HPF (None Seen); Urine Urobilinogen Normal (Normal); Urine WBC <5 /HPF (<5)
--- NOTE | 2023-12-13 18:14 | RAD REPORT ---
EXAM DESCRIPTION: CT - Chest For Pe Angio - 12/13/2023 6:02 pm CLINICAL HISTORY: Chest pain;Dyspnea COMPARISON: No comparisons TECHNIQUE: Dynamically enhanced axial 3 mm thick images of the chest were obtained during administra tion of <100> mL Isovue 370 IV contrast. Coronal and oblique reconstruction images were generated and reviewed. Exam utilizes a protocol for optimal evaluation of pulmonary arterial tree. Maximum intensity projections 3D imaging was utilized All CT scans are performed using dose optimization technique as appropriate and may include automated exposure control or mA/KV adjustment according to patient size. FINDINGS: Chest Wall: No suspicious thyroid nodules or pathologic lymphadenopathy. Lungs: No acute abnormality. Pleura: No significant effusions or pneumothorax. Mediastinum/douglas: No pathologic lymphadenopathy. Small hiatal hernia. Pulmonary arteries/Aorta: No filling defect identified. No aortic aneurysm. Enlarged main pulmonary a rtery suggesting pulmonary artery hypertension. Heart: No significant pericardial effusion. Normal heart size. Multi-vessel coronary disease. Upper abdomen: No acute abnormality. Bones: No acute abnormality. IMPRESSION: Negative for pulmonary embolism. No other acute findings in the chest. Possible pulmonar y artery hypertension. Multi-vessel coronary disease.
--- NOTE | 2023-12-13 18:21 | RAD REPORT ---
EXAM DESCRIPTION: CTAbdomen Pelvis W Contrast - 12/13/2023 6:02 pm CLINICAL HISTORY: ABD PAIN COMPARISON: Chest For Pe Angio dated 12/13/2023 TECHNIQUE: CT of the abdomen and pelvis was performed. All CT scans are performed using dose optimization technique as appropriate and may include automated exposure control or mA/KV adjustment according to patient size. FINDINGS: Lower chest: Small hiatal hernia. Liver: No acute abnormality or suspicious lesions. Biliary: No biliary ductal dilatation. Stomach: No significant focal abnormality. Duodenum: No significant focal abnormality. Pancreas: No significant abnormality. Spleen: No significant abnormality. Adrenal: No suspicious lesions. Kidney/ureter: No hydronephrosis. No renal calculi. Wedge-shaped. Hypoattenuation in the right interp olar kidney. Retroperitoneum: No retroperitoneal adenopathy. Vascular: No aneurysm. Atherosclerosis. Severe narrowing of the iliac vessels, right greater than lef t. Bowel: Diverticulosis without diverticulitis.. Peritoneum: No ascites or free air. Bladder: Grossly unremarkable. Reproductive: No adnexal masses. Hysterectomy Bones: No acute fracture. Other: n/a IMPRESSION: Single nonspecific focus of hypoenhancement in the right kidney could reflect pyelonephr itis or age indeterminate renal infarct. No other acute findings identified.
[2023-12-13] MEDS ORDERED: ALBUTEROL 2.5 MG/3 ML NEB SOL NEB PRN (20:59)
[2023-12-13] MEDS: FAMOTIDINE 20 MG TAB PO SCH (21:00)
[2023-12-13] MEDS: Levofloxacin 750mg IV 750 MG/150 ML BAG IV SCH (21:24)
[2023-12-13] MEDS: IPRATROPIUM BROM 0.5MG/2.5ML NEB SCH (22:06)
[2023-12-13 22:44] VITALS: BMI 24.4
[2023-12-14] MEDS: METHYLPREDNISOLONE 40 MG INJ IV SCH (00:19)
[2023-12-14 07:28] LABS: Absolute Lymphocytes (CBC) 0.3 K/uL (0.7-4.9); Absolute Monocytes 0.1 K/uL (0.1-1.3); Absolute Neutrophil 9.1 K/uL (1.8-8.0); Eosinophils % 0.1 % (0-4.4); Hematocrit 44.2 % (36.0-45.0); Hemoglobin 14.9 g/dL (12.0-15.0); MCHC 33.6 g/dL (32.0-36.0); MCV 95.3 fL (80-100); MPV 9.6 fL (7.6-11.3); Monocytes % 0.6 % (3.3-12.3); Neutrophils % 96.3 % (41.7-73.7); Nucleated Red Blood Cells % 0.1 % (0-0); Platelets 222 thou/uL (152-406); RBC Red Blood Cell Count 4.64 M/uL (3.86-4.86); Red Cell Distribution Width 13.8 % (12.1-15.2)
[2023-12-14] MEDS: ENOXAPARIN 60 MG/0.6 ML SQ SCH (07:39)
--- NOTE | 2023-12-14 07:53 | P.PN ---
Subjective Date of Service: 12/14/23 Chief Complaint: Chest pain Admitted for chest pain, shortness of breath, chest pain improved with analgesics, shortness improved with nebulizers and steroids. - Physical Exam General: Alert, In no apparent distress, Oriented x3 HEENT: Atraumatic, Normocephalic Neck: Supple, JVD not distended Respiratory: Expiratory wheezes, Other (Productive cough) Cardiovascular: Normal pulses, Regular rate/rhythm Capillary refill: <2 Seconds Gastrointestinal: Normal bowel sounds, Soft and benign Musculoskeletal: No clubbing, No swelling Integumentary: No rashes, No breakdown Neurological: Normal speech, Normal strength at 5/5 x4 extr <Viola Ibanez - Last Filed: 12/14/23 15:57> Date of Service: 12/14/23 <Nani Hatfield - Last Filed: 12/14/23 16:36> Review of Systems per HPI <Viola Ibanez - Last Filed: 12/14/23 15:57> Physical Examination - Vital Signs Temperature: 98.1 F Blood Pressure: 121/75 Pulse: 68 Respirations: 18 Pulse Ox (%): 97 - Studies Laboratory Data (last 24 hrs) 12/13/23 12/13/23 12/13/23 15:35 15:35 15:35 WBC 13.20 H Hgb 16.2 H Hct 48.4 H Plt Count 227 PT 11.7 INR 1.07 Sodium 135 L Potassium 3.5 BUN 10 Creatinine 0.99 Glucose 96 Magnesium 1.9 Total Bilirubin 0.3 AST 17 ALT 17 Alkaline Phosphatase 103 Triglycerides 147 Cholesterol 248 H HDL Cholesterol 68 H Cholesterol/HDL Ratio 3.65 Lipase 30 <Viola Ibanez - Last Filed: 12/14/23 15:57> Assessment And Plan - Plan Assessment plan Chest pain rule out GA NSTEMI Elevated troponin Cardiology consulted Telemetry, trend troponins, aspirin, as needed analgesics, as needed antiemetics, lipid panel Troponin initial troponin -21.7-repeat 150.3, 97.2 therapeutic Lovenox added 1 mg/kg BNP 384, 1063 Lipid panel elevated cholesterol 248 Triglycerides are normal at 147 LDL elevated at 150 COPD exacerbation History of COPD Tobacco use O2 2 L keep sats greater than 92%, nebs, steroids, Levaquin, Educated on smoking cessation Chest x-ray IMPRESSION: No acute cardiopulmonary disease. CT of the abdomen pelvis IMPRESSION: Single nonspecific focus of hypoenhancement in the right kidney could reflect pyelonephritis or age indeterminate renal infarct. No other acute findings identified. Anxiety/depression Resume appropriate home Full code DVT Lovenox Diet cardiac Disposition Home Discharge Plan: Home - Code Status/Comfort Care Code Status: Full Code Critical Care: No Time Spent Managing PTS Care (In Minutes): 35 <Viola Ibanez - Last Filed: 12/14/23 15:57> - Plan Pt seen and examined. I agree with the note by the CHIEF OF HARBOR PATROL. Will keep pt NPO after midnight for NM stress test in the am. Will trend troponin. <Nani Hatfield - Last Filed: 12/14/23 16:36>
[2023-12-14] MEDS: NICOTINE 21 MG/PAT TD SCH (08:46)
[2023-12-14] MEDS: ACETAMINOPHEN 500 MG TAB PO PRN (09:16)
[2023-12-14 09:41] LABS: Anion Gap 9.6 mEq/L (5.0-15.0); Potassium 3.6 mEq/L (3.5-5.1)
[2023-12-14 10:04] LABS: Blood Morphology Comment NOT SEEN (NOT SEEN); Platelet Estimate ADEQ; White Blood Cell Scan OK (OK)
[2023-12-14 10:09] LABS: Troponin High Sensitivity 97.2 pg/mL (<58.9)
--- NOTE | 2023-12-14 13:24 | P.CNS ---
Date of Consult: 12/14/23 Chief Complaint: Chest pain History of Present Illness: Patient with PMH of COPD, presented with chest pain that start two days ago, pressure sensation, left sided but radiate across chest and that back, associated with diapharesis, nausea, one time vomit after she tried 4 NTG tabs, report same symptoms in the past where she took ASA, denies any other associated symptoms. Allergies No Known Drug Allergies Allergy (Verified 04/25/15 10:22) Unknown No Known Allergies Allergy (Uncoded 04/03/17 14:14) Unknown Home Medications: RX: Citalopram Hydrobromide [Celexa] 40 mg PO DAILY 04/03/17 RX: Diltiazem HCl [Cartia Xt] 180 mg PO DAILY 04/03/17 RX: Gabapentin 800 mg PO BID 04/03/17 ALPRAZolam [Xanax] 1 mg PO TID PRN 12/13/23 Aspirin [Aspirin EC 325 MG] 325 mg PO DAILY 12/13/23 - Past Medical/Surgical History Diabetic: No -: Coronary artery disease -: Hypertension -: Arthritis -: Scoliosis -: C-sections x2 -: Hysterectomy -: Pain pump placement/removal Psychosocial/ Personal History: The patient reports a significant other - Family History Sister Medical History: Heart disease - Social History Smoking Status: Unknown if ever smoked Alcohol use: No CD- Drugs: No Caffeine use: Yes Place of Residence: Home Review of Systems 10-point ROS is otherwise unremarkable Physical Examination Temp Pulse Resp BP Pulse Ox 97.9 F 71 17 115/74 95 12/14/23 08:00 12/14/23 08:00 12/14/23 08:00 12/14/23 08:00 12/14/23 08:00 General: Alert, Oriented x3 HEENT: Atraumatic Neck: Supple, JVD not distended Respiratory: Clear to auscultation bilaterally Cardiovascular: No edema, Normal S1 S2 Gastrointestinal: Normal bowel sounds Laboratory Data (last 24 hrs) 12/13/23 12/13/23 12/13/23 15:35 15:35 15:35 WBC 13.20 H Hgb 16.2 H Hct 48.4 H Plt Count 227 PT 11.7 INR 1.07 Sodium 135 L Potassium 3.5 BUN 10 Creatinine 0.99 Glucose 96 Magnesium 1.9 Total Bilirubin 0.3 AST 17 ALT 17 Alkaline Phosphatase 103 Triglycerides 147 Cholesterol 248 H HDL Cholesterol 68 H Cholesterol/HDL Ratio 3.65 Lipase 30 - Problems (1) Chest pain Onset Date: 04/04/17 Current Visit: No Status: Acute Plan: although not very typical but patient with multiple risk factors fort CAD. NPO after mid night for nuclear stress test in am. Qualifiers: Chest pain type: unspecified Qualified Code(s): R07.9 - Chest pain, unspecified (2) Hypertension Onset Date: 04/04/17 Current Visit: No Status: Chronic Plan: please continue patient home medications. Qualifiers: Hypertension type: essential hypertension Qualified Code(s): I10 - Essential (primary) hypertension (3) Tobacco abuse Onset Date: 04/04/17 Current Visit: No Status: Chronic Plan: advised patient about risks of tobacco and importance to quit.
[2023-12-14] MEDS: FUROSEMIDE 40 MG/4 ML VIAL IV ONE (17:11)
[2023-12-14] MEDS: POTASSIUM CL SA 10 MEQ TAB PO ONE (17:12)
[2023-12-14] MEDS: MORPHINE 2 MG/ML SYR IV PRN (17:37)
[2023-12-14] MEDS: GABAPENTIN 400 MG CAP PO SCH (21:43)
[2023-12-14] MEDS: ALPRAZOLAM 1 MG TABLET PO PRN (21:47)
[2023-12-15 04:28] LABS: Absolute Lymphocytes (CBC) 0.4 K/uL (0.7-4.9); Absolute Monocytes 0.4 K/uL (0.1-1.3); Absolute Neutrophil 18.3 K/uL (1.8-8.0); Basophils % 0.2 % (0-1.3); Hematocrit 45.4 % (36.0-45.0); Hemoglobin 14.9 g/dL (12.0-15.0); Lymphocytes % 2.3 % (15.3-44.8); MCH 31.4 pg (27.0-35.0); MCHC 32.9 g/dL (32.0-36.0); MCV 95.2 fL (80-100); MPV 10.5 fL (7.6-11.3); Monocytes % 2.3 % (3.3-12.3); Platelets 240 thou/uL (152-406); RBC Red Blood Cell Count 4.77 M/uL (3.86-4.86); Red Cell Distribution Width 14.2 % (12.1-15.2)
[2023-12-15 04:39] LABS: Neutrophils % 95.2 % (41.7-73.7)
[2023-12-15 04:57] LABS: Magnesium 2.3 mg/dL (1.6-2.4)
[2023-12-15] MEDS ORDERED: REGADENOSON 0.4 MG/5 ML SYR IV ONE (09:05)
[2023-12-15] MEDS ORDERED: ONDANSETRON 4 MG/2 ML VIAL ONE (09:28)
[2023-12-15] MEDS: ONDANSETRON 4 MG/2 ML VIAL IV PRN (09:32)
[2023-12-15] MEDS: HYDRALAZINE HCL 20 MG/ML VIAL IV ONE (09:35)
--- NOTE | 2023-12-15 10:27 | RAD REPORT ---
EXAM DESCRIPTION: NM - Rest Stress Cardiac Imaging - 12/15/2023 10:07 am CLINICAL HISTORY: elevated trop Chest pain. COMPARISON: Rest Stress Cardiac Imaging dated 04/04/2017 TECHNIQUE: The patient was administered approximately 10mCi of Tc 99m Sestamibi prior to resting SPE CT imaging of the heart. The patient was then administered approximately 30 mCi of Tc 99m Sestamibi f ollowing exercise or pharmacologic stress. Multiplanar SPECT images were reviewed. FINDINGS: Moderate sized area of mild to moderate stress-induced ischemia is seen involving the post erior wall extending to involve the apex as well as the anteroapical segment. No fixed defect is seen to suggest hibernating myocardium or scarred myocardium. The end diastolic volume is 120 ml, the end systolic volume is 83 ml, and the ejection fraction is 31 %. IMPRESSION: Moderate sized area of moderate stress-induced ischemia as detailed.
[2023-12-15] MEDS: CITALOPRAM 10 MG TABLET PO SCH (10:45)
[2023-12-15] MEDS: ASPIRIN EC 325 MG TABLET PO SCH (10:45)
[2023-12-15] MEDS: DILTIAZEM HCL 180 MG SR CAP PO SCH (10:46)
--- NOTE | 2023-12-15 12:08 | P.PN ---
Subjective Date of Service: 12/15/23 Chief Complaint: Chest pain Subjective: Other (denies chest pain, shortness of breath) Review of Systems 10-point ROS is otherwise unremarkable Respiratory: As per HPI Cardiovascular: As per HPI Physical Examination - Vital Signs Temperature: 97.5 F Blood Pressure: 168/93 Pulse: 85 Respirations: 16 Pulse Ox (%): 96 - Physical Exam General: Alert, In no apparent distress, Oriented x3 HEENT: Atraumatic, Normocephalic Neck: Supple Respiratory: Normal air movement Cardiovascular: No edema, Normal pulses Capillary refill: <2 Seconds Gastrointestinal: Soft and benign Musculoskeletal: No clubbing, No swelling Integumentary: No rashes Neurological: Normal speech, Normal tone Lymphatics: No axilla or inguinal lymphadenopathy External genitalia: Deferred Rectal: Deferred Assessment And Plan - Plan A/P Chest pain/NSTEMI: Will r/o ACS. Will trend troponin Q6h. Trended up and then leveled out. Pt NPO after midnight for NM stress test today. Stress test positive this am. Appreciate plan per Cardiology. Plan to Will continue therapeutic lovenox, aspirin and statin. Possible pyelonephritis; Per CT abd. Cultures remain negative. Pt receiving Levaquin IV Nausea and vomiting: Continue prn antiemetic Hx of COPD: Continue prn duoneb and oxygen, Lungs CTA, pt denies SOB today Tobacco abuse: Pt was advised to quit smoking. Will give nicotine patch DVT ppx: lovenox Code: full
--- NOTE | 2023-12-15 12:30 | P.PN ---
Subjective Date of Service: 12/15/23 Chief Complaint: Chest pain Subjective: No new changes Review of Systems 10-point ROS is otherwise unremarkable Physical Examination - Vital Signs Temperature: 97.5 F Blood Pressure: 168/93 Pulse: 85 Respirations: 16 Pulse Ox (%): 96 - Physical Exam General: Alert, Oriented x3 HEENT: Atraumatic Neck: Supple Respiratory: Clear to auscultation bilaterally Cardiovascular: No edema, Regular rate/rhythm, Normal S1 S2 Gastrointestinal: Normal bowel sounds Assessment And Plan - Current Problems (Diagnosis) (1) Chest pain Onset Date: 04/04/17 Current Visit: No Status: Acute Plan: Patient stress test is abnormal showing reversible ischemia. will do coronary angiogram in am, please keep patient NPO after midnight. Qualifiers: Chest pain type: unspecified Qualified Code(s): R07.9 - Chest pain, unspecified (2) Hypertension Onset Date: 04/04/17 Current Visit: No Status: Chronic Plan: please continue patient home medications. Qualifiers: Hypertension type: essential hypertension Qualified Code(s): I10 - Essential (primary) hypertension (3) Tobacco abuse Onset Date: 04/04/17 Current Visit: No Status: Chronic Plan: advised patient about risks of tobacco and importance to quit.
--- NOTE | 2023-12-15 13:06 | TREADPHA ---
DX: ELEVATED TROPONIN Date of Study: 12/15/2023 Ht: 5' 0 " Wt: 125 lb 0 oz Consulting Physician: PARVIN MEDICATIONS: TYLENOL, XANAX, ECOTIN, CELEXA, CARDIZEM, NICODERM, SOLU-MEDROL, MORPHINE, ZOFRAN HISTORY: ARTHRITIS, HYPOGLYCEMIC, SMOKER, NO DRUGS, CHRONIC OBSTRUCTIVE PULMONARY DISEASE, ETOH, MYOCARDIAL INFARCTION x2, AND CONGESTIVE HEART FAILURE. PHYSICIAL EXAMINATION: RESTING B.P.: 142/90 RESTING H.R.: 74 RESTING EKG: SINUS RHYTHM PROTOCOL: PHARMACOLOGIC EXERCISE TIME: 3:30 B.P. AT [place] STRESS: 157/94 IMPRESSION: LEXISCAN INJECTED. CARDIOLITE INJECTED - SEE NUCLEAR MEDICINE REPORT. NO CHEST PAIN, NO VENTRICULAR TACHYCARDIA, NO SUPRAVENTRICULAR TACHYCARDIA, NO ARRHYTHMIA, SOME NAUSEA - COFFEE SUBSIDED SYMPTOMS. PATIENT HAD HIGH BLOOD PRESSURE - NOTIFIED DR. MELENDREZ - 10mg HYDRALAZINE IVPx1 AND ZOFRAN 4MG IVPx1 WERE ADMINISTERED.
--- NOTE | 2023-12-15 14:20 | EKG ---
Test Date: 2023-12-13 Test Time: 14:22:48 Radiology Special Procedure Tech: PH MEASUREMENT RESULTS: Intervals: Rate: 74 [place]: 132 QRSD: 82 QT: 390 QTc: 432 [place]: P: 82 [place]: 132 QRS: 58 T: 20 INTERPRETIVE STATEMENTS: Normal sinus rhythm Biatrial enlargement Left ventricular hypertrophy with repolarization abnormality Abnormal ECG Compared to ECG 04/03/2017 10:58:18 Atrial abnormality now present Left ventricular hypertrophy now present Early repolarization now present Electronically Signed On 12-15-23 14:15:00 CDT by Oswaldo Lacy
[2023-12-16 03:54] LABS: Absolute Basophils 0.1 K/uL (0-0.5); Absolute Lymphocytes (CBC) 0.5 K/uL (0.7-4.9); Absolute Monocytes 0.4 K/uL (0.1-1.3); Absolute Neutrophil 13.3 K/uL (1.8-8.0); Basophils % 0.6 % (0-1.3); Eosinophils % 0.1 % (0-4.4); Hematocrit 43.1 % (36.0-45.0); Hemoglobin 14.7 g/dL (12.0-15.0); Lymphocytes % 3.5 % (15.3-44.8); MCH 32.3 pg (27.0-35.0); MCHC 34.1 g/dL (32.0-36.0); MCV 94.7 fL (80-100); MPV 10.1 fL (7.6-11.3); Monocytes % 2.6 % (3.3-12.3); Nucleated Red Blood Cells % 0.1 % (0-0); Platelets 206 thou/uL (152-406); RBC Red Blood Cell Count 4.55 M/uL (3.86-4.86); Red Cell Distribution Width 13.9 % (12.1-15.2)
[2023-12-16 04:03] LABS: Neutrophils % 93.2 % (41.7-73.7)
[2023-12-16 04:47] LABS: Anion Gap 7.5 mEq/L (5.0-15.0); Magnesium 2.4 mg/dL (1.6-2.4); Potassium 4.5 mEq/L (3.5-5.1)
[2023-12-16] MEDS ORDERED: HEPA 1000U/500MLS 2,000 UNIT/1,000 ML BAG IV ONE (06:53)
[2023-12-16] MEDS ORDERED: NA CHLORIDE 0.9% 500 ML ONE (06:54)
[2023-12-16] MEDS ORDERED: LIDOCAINE 1% 20 ML MDV ONE (06:54)
[2023-12-16] MEDS ORDERED: TICAGRELOR 90 MG TABLET PO ONE (07:04)
[2023-12-16] MEDS ORDERED: CLOPIDOGREL 75 MG TABLET ONE (07:04)
[2023-12-16] MEDS ORDERED: ASPIRIN 325 MG TAB ONE (07:05)
[2023-12-16] MEDS ORDERED: NITROGLYCERIN/D5W 50 MG/250 ML BTL IV ONE (07:06)
[2023-12-16] MEDS ORDERED: MIDAZOLAM HCL 2 MG/2 ML INJ ONE (07:06)
[2023-12-16] MEDS ORDERED: VERAPAMIL HCL 10 MG/4 ML VIAL IV ONE (07:06)
[2023-12-16] MEDS ORDERED: ATROPINE SULF 1 MG/10 ML SYR IV ONE (07:06)
[2023-12-16] MEDS ORDERED: FENTANYL CITR 100 MCG/2 ML ONE (07:06)
[2023-12-16] MEDS ORDERED: HEPARIN 5000 UNIT/ML 1 ML VIAL ONE (07:07)
[2023-12-16] MEDS ORDERED: HEPARIN 10,000 UNIT/10 ML VIAL IV ONE (07:07)
--- NOTE | 2023-12-16 07:24 | P.PN ---
Subjective Date of Service: 12/16/23 Chief Complaint: Chest pain No complaints this am, denies pain. Pt ready for LHC. She states this will be her 4th Review of Systems 10-point ROS is otherwise unremarkable General: Unremarkable Eyes: Unremarkable ENT: Unremarkable Respiratory: As per HPI Cardiovascular: As per HPI Gastrointestinal: As per HPI Genitourinary: Unremarkable Musculoskeletal: Unremarkable Integumentary: Unremarkable Neurological: Unremarkable Lymphatics: Unremarkable Physical Examination - Vital Signs Temperature: 97.3 F Blood Pressure: 99/68 Pulse: 59 Respirations: 15 Pulse Ox (%): 96 - Physical Exam General: Alert, In no apparent distress, Oriented x3 HEENT: Atraumatic Neck: Supple Respiratory: Normal air movement Capillary refill: <2 Seconds Gastrointestinal: Soft and benign Musculoskeletal: No clubbing, No swelling Integumentary: No rashes Neurological: Normal speech, Normal tone Lymphatics: No axilla or inguinal lymphadenopathy External genitalia: Deferred Rectal: Deferred Assessment And Plan - Plan A/P Chest pain/NSTEMI: Will r/o ACS. Will trend troponin Q6h. Trended up and then leveled out. Stress test positive yesterday am. Appreciate plan per Cardiology. Plan to continue therapeutic lovenox, aspirin and statin. Pt to go for C today Possible pyelonephritis; Per CT abd. Cultures remain negative. Pt receiving Levaquin IV Nausea and vomiting: Continue prn antiemetic Hx of COPD: Continue prn duoneb and oxygen, Lungs CTA, pt denies SOB Tobacco abuse: Pt was advised to quit smoking. Will give nicotine patch DVT ppx: lovenox Code: full
[2023-12-16] MEDS ORDERED: NA CHLORIDE 0.9% 1,000 ML IV SCH (09:00)
[2023-12-16] MEDS ORDERED: NITROGLYCERIN 0.4 MG/TAB SL PRN (09:00)
[2023-12-16] MEDS ORDERED: ACETAMINOPHEN 325 MG TABLET PO PRN (09:00)
--- NOTE | 2023-12-16 09:39 | OP ---
Date of Procedure: 12/16/2023 Surgeon: Don Loja Procedures Performed: 1.Selective coronary angiogram. 2.Left heart catheterization. 3.Left subclavian angiogram. Indication For Procedure: Unstable angina and abnormal stress test. Access: Right radial, 6-[place] sheath, closed with TR band. Complications: None. Bleeding: Less than 50 cc. Anesthesia: Total sedation time was 20 minutes with 1 of Versed and 25 of fentanyl. Description Of Procedure: After risks, benefits, and alternatives were explained to the patient, the patient agreed to proceed with the procedure and signed informed consent. The patient was brought b [facility] to the catheterization laboratory, placed on the foundry laborer coreroom table, and draped in a sterile fashion. Time-out was performed and sedation was administered. We accessed the right radial artery with a m icropuncture sheath and then we advanced the [place] 4 catheter over a J-wire, that was crossed into th e LV cavity. LVEDP was obtained. Then pullback did not show any gradient, so the same catheter was used for selective coronary angiogram of the left and right coronary systems, so the same catheter wa s pulled into the left subclavian artery, selective engagement was done and subclavian angiogram was done at the end. Catheter was removed over a J-wire and the sheath was pulled out and closed with a TR band with no complications. The patient was moved back to recovery in stable condition. Findings: 1.Left main: Diffuse disease, distal 70%. 2.LAD: Proximal to mid diffuse 70% disease. Mid to distal mild luminal irregularities. 3.Diagonals: Large with mild luminal irregularities. 4.Left circumflex: Ostial to proximal 80%, gives large OM1 that got proximal 50% disease and mild l uminal irregularities. 5.RCA: Large, proximal 70% disease, mid 80%, and distal 90% disease. Slow flow into the RPDA/RPLB, which also gets left to right collaterals. 6.Left subclavian artery shows proximal to mid 80% stenosis. Assessment And Plan: 1.Significant 3-vessel coronary artery disease. 2.Significant left subclavian artery disease. Plan will be to consult CT Surgery for a bypass. Continue medical management. ABDOUL/SANG Voice ID: [id number] Report ID: [id number]
--- NOTE | 2023-12-16 16:27 | P.PN ---
Subjective Date of Service: 12/16/23 Chief Complaint: Chest pain Subjective: No new changes Review of Systems 10-point ROS is otherwise unremarkable Physical Examination - Vital Signs Temperature: 98.0 F Blood Pressure: 107/73 Pulse: 53 Respirations: 16 Pulse Ox (%): 96 - Physical Exam General: Alert, Oriented x3 HEENT: Atraumatic Neck: Supple Respiratory: Clear to auscultation bilaterally Cardiovascular: No edema, Normal S1 S2 Gastrointestinal: Normal bowel sounds Assessment And Plan - Current Problems (Diagnosis) (1) Chest pain Onset Date: 04/04/17 Current Visit: No Status: Acute Plan: Patient stress test is abnormal showing reversible ischemia, that was followed by coronary angiogram that shows significant CAD. plan is to transfer patient for CABG evaluation. continue ASA 81 mg daily. Qualifiers: Chest pain type: unspecified Qualified Code(s): R07.9 - Chest pain, unspecified (2) Hypertension Onset Date: 04/04/17 Current Visit: No Status: Chronic Plan: please continue patient home medications. Qualifiers: Hypertension type: essential hypertension Qualified Code(s): I10 - Essential (primary) hypertension (3) Tobacco abuse Onset Date: 04/04/17 Current Visit: No Status: Chronic Plan: advised patient about risks of tobacco and importance to quit.
--- NOTE | 2023-12-16 17:11 | P.DS ---
Admission Date: 12/13/23 Discharge Date: 12/16/23 Disposition: ROUTINE DISCHARGE Discharge Condition: FAIR Reason for Admission: Chest pain Brief History of Present Illness: 63-year-old lady with a past medical history of COPD, PR, anxiety, arthritis, presents to the emergency room with chest pain. Reports chest pain is substernal, does not radiate, reports symptoms started today. Reports history of COPD, reports associated cough, shortness of breath, abdominal pain. Shortness of breath is worse with exertion. Reports symptoms mildly improved with IV medicines from the emergency room. No reported nausea vomiting diarrhea, edema, dizziness. Plan to admit for chest pain rule out PR, COPD exacerbation, vital signs BP 179 / 106; Pulse 71; Resp 18; Pulse Ox 100% on R/A; 74 beats/min. Rhythm is regular. QRS Viola is Normal. NV interval is normal. QRS interval is normal. QT interval is normal. No Q waves. T waves are Normal. No ST changes noted. Clinical impression: NSR w/ Non-specific ST/T Changes and No evidence of ischemia. Hospital Course: Pt is a 63yo female with past medical history of COPD, PR, anxiety, and arthritis who presented with chest pain. The chest pain was substernal, non-r adiating in nature and associated with cough, shortness of breath with exertion, abdominal pain. We admitted to r/o PR. EKG showed NSR. Cardiology did NM stress test which was abnormal. Pt did cardiac cath on 12/16/23 which showed significant 3 vessel coronary artery disease. Pt was transferred to [facility] for CABG. On admission, CT abd was concerning possible pylonephritis. We gave iv lebvaquin but urine culture was negative. We continued steroid, prn duoneb, and oxygen for COPD. Pt was advised to quit smoking. She was in NAD prior to discharge. Vital Signs/Physical Exam: Temp Pulse Resp BP Pulse Ox 98.0 F 53 16 107/73 96 12/16/23 16:27 12/16/23 16:27 12/16/23 16:27 12/16/23 16:27 12/16/23 16:27 Laboratory Data at Discharge: WBC 14.30 thou/uL (4.3-10.9) H 12/16/23 03:19 Hgb 14.7 g/dL (12.0-15.0) 12/16/23 03:19 Hct 43.1 % (36.0-45.0) 12/16/23 03:19 Plt Count 206 thou/uL (152-406) 12/16/23 03:19 PT 11.7 SECONDS (9.5-12.5) 12/13/23 15:35 INR 1.07 12/13/23 15:35 Sodium 136 mEq/L (136-145) 12/16/23 03:19 Potassium 4.5 mEq/L (3.5-5.1) 12/16/23 03:19 BUN 29 mg/dL (7-18) H 12/16/23 03:19 Creatinine 0.92 mg/dL (0.55-1.02) 12/16/23 03:19 Glucose 144 mg/dL (74-106) H 12/16/23 03:19 Magnesium 2.4 mg/dL (1.6-2.4) 12/16/23 03:19 Total Bilirubin 0.3 mg/dL (0.2-1.0) 12/13/23 15:35 AST 17 U/L (15-37) 12/13/23 15:35 ALT 17 U/L (13-56) 12/13/23 15:35 Alkaline Phosphatase 103 U/L (45-117) 12/13/23 15:35 Triglycerides 147 mg/dL (<150) 12/13/23 15:35 Cholesterol 248 mg/dL (<200) H 12/13/23 15:35 HDL Cholesterol 68 mg/dL (40-60) H 12/13/23 15:35 Cholesterol/HDL Ratio 3.65 12/13/23 15:35 Lipase 30 U/L (13-75) 12/13/23 15:35 Home Medications: Citalopram Hydrobromide [Celexa] 40 mg PO DAILY 04/03/17 Diltiazem HCl [Cartia Xt] 180 mg PO DAILY 04/03/17 Gabapentin 800 mg PO BID 04/03/17 ALPRAZolam [Xanax*] 1 mg PO TID PRN 12/13/23 Aspirin [Aspirin EC 325 MG] 325 mg PO DAILY 12/13/23 Nicotine [Nicoderm*] 21 mg TD DAILY 42 Days #42 patch 03/26/24 predniSONE [Deltasone*] 10 mg PO DAILY 3 Days #3 tab 12/16/23 predniSONE [Prednisone*] 40 mg PO 1X 3 Days #3 tab 12/16/23 predniSONE [Prednisone] 20 mg PO DAILY 3 Days #3 tab 12/16/23 New Medications: predniSONE [Deltasone*] 10 mg PO DAILY 3 Days #3 tab Nicotine [Nicoderm*] 21 mg TD DAILY 42 Days #42 patch predniSONE [Prednisone] 20 mg PO DAILY 3 Days #3 tab predniSONE [Prednisone*] 40 mg PO 1X 3 Days #3 tab Physician Discharge Instructions: Transfer to [facility]. Continue home meds as precribed. Follow up with PCP and Cardiology within 2 weeks Diet: AHA Activity: Ad aguilar Followup: Manjit Mccartney MD [Primary Care Provider] -
[2023-12-16] MEDS: ALBUTEROL 2.5 MG/3 ML NEB SOL NEB PRN (21:07)
[2023-12-16 21:35] VITALS: BP 167/90; TEMP 97.2
[2023-12-16 21:57] VITALS: O2SAT 96
== END 2023-12-16 21:50 | disposition short-term general hospital (02) | DRG 190 ==
LOC: ER 15:10 → ERHOLD 17:29 → 2ND 19:23
PROVIDERS: ADMIT Hospitalist; ATTEND Hospitalist
PROC: 4A023N7 Measurement of Cardiac Sampling and Pressure, Left Heart, Percutaneous Approach (ICD-10-PCS; principal; 2023-12-16)
PROC: B2111ZZ Fluoroscopy of Multiple Coronary Arteries using Low Osmolar Contrast (ICD-10-PCS; 2023-12-16)
PROC: B3121ZZ Fluoroscopy of Left Subclavian Artery using Low Osmolar Contrast (ICD-10-PCS; 2023-12-16)
DX: J44.1 Chronic obstructive pulmonary disease with (acute) exacerbation (principal); I21.4 Non-ST elevation (NSTEMI) myocardial infarction; N12 Tubulo-interstitial nephritis, not specified as acute or chronic; I10 Essential (primary) hypertension; F41.9 Anxiety disorder, unspecified; F32.A Depression, unspecified; M41.9 Scoliosis, unspecified; I25.10 Atherosclerotic heart disease of native coronary artery without angina pectoris; I25.2 Old myocardial infarction; D72.829 Elevated white blood cell count, unspecified; Z71.6 Tobacco abuse counseling; Z79.82 Long term (current) use of aspirin; Z79.52 Long term (current) use of systemic steroids; Z90.710 Acquired absence of both cervix and uterus; Z79.899 Other long term (current) drug therapy
CPT/HCPCS: 36415; 71045; 71275; 74177; 76937; 78452; 80048; 80061; 80076; 81001; 82947; 83605; 83690; 83735; 83880; 84484; 85025; 85610; 87040; 93005; 93017; 93458; 94640; 94760; 96372; 96374; 96375; 99152; 99153; 99285; A9500; C1893; J0360; J0461; J1644; J1650; J1940; J2001; J2250; J2270; J2405; J2785; J2920; J2930; J3010; J7040; J7614; J7644; Q9966; Q9967